=== PATIENT | female | born 1935 | race Caucasian/White ===

== ENCOUNTER 2017-03-09 09:14 | Observation (INO) | payer MEDICARE, OTHER ==
--- NOTE | 2017-03-09 09:23 | EDM.PDOC ---
ED HPI GENERAL MEDICAL PROBLEM - General Chief Complaint: General Stated Complaint: [id number] DIZZY NAUSEA Time Seen by Provider: 03/09/17 09:22 Source of Information: Reports: Patient History Limitations: Reports: No Limitations - History of Present Illness INITIAL COMMENTS - FREE TEXT/NARRATIVE: C/O sudden onset of severe "room spin" dizziness which causes nausea and vomiting. Denies head injury or MANCILLA. Admits to sinus congestion x2 weeks. Rt ear feel plugged or muffled. Has Hx of vertigo with similar Sx's. Onset: sudden Duration: Intermittent Location: Reports: generalized Severity: severe Improves with: Reports: None Worsens with: Reports: Movement Context: Denies: Activity, Exercise, Lifting, Sick contact, Trauma Associated Symptoms: Reports: no other symptoms - Related Data Allergies Allergy/AdvReac Type Severity Reaction Status Date / Time atorvastatin [From Lipitor] Allergy Mild Muscle Verified 08/31/16 14:29 Aches aspirin Allergy tongue Verified 05/26/16 17:09 swelling guaifenesin [From Robitussin] Allergy Cannot Verified 12/25/14 07:32 Remember metronidazole Allergy Cannot Verified 12/25/14 07:32 Remember pravastatin Allergy Muscle Verified 12/26/14 06:13 Aches rosuvastatin Allergy Muscle Verified 12/26/14 06:13 Aches paroxetine HCl [From Paxil] AdvReac Unknown Nausea. Verified 05/26/16 17:09 Jittery. sulfamethoxazole AdvReac Unknown Bone pain Verified 05/26/16 17:09 [From Bactrim] trimethoprim [From Bactrim] AdvReac Unknown Bone pain Verified 05/26/16 17:09 propoxyphene napsylate AdvReac Nausea and Verified 05/26/16 17:09 [From Darvocet-N] Vomiting Home Meds: Home Meds Atenolol [Tenormin] 50 mg PO DAILY 10/04/14 [History] Calcium Carb & Citrate/Vit D3 [Calcium + D3 ER Tablet] 1 tab PO DAILY 10/04/14 [ History] Cranberry 1,000 mg PO DAILY 10/04/14 [History] Fish Oil/[place]-3 Fatty Acids [Fish Oil] 1,000 mg PO BID 10/04/14 [History] Gluc/[place]-Msm#2/C/D3/Ranjan/Born [Pjkczcrjgs-Qmhudcpatwr-GJS] 1,500 mg PO TID 04/12 [History] Pantoprazole Sodium [Protonix] 40 mg PO DAILY 10/04/14 [History] Simvastatin [Zocor] 40 mg PO DAILY 10/04/14 [History] amLODIPine [Norvasc] 5 mg PO DAILY 10/04/14 [History] Cholecalciferol (Vitamin D3) [Vitamin D3] 1,000 unit PO DAILY 12/25/14 [History] Clotrimazole/Betamethasone Dip [Lotrisone Cream] 1 gm TOP BID PRN 12/25/14 [ History] Fluticasone Propionate [Flonase] 2 spray NASBOTH DAILY PRN 12/25/14 [History] Ubidecarenone [Coenzyme Q10] 100 mg PO DAILY 12/25/14 [History] oxyCODONE HCl/Acetaminophen [Endocet 5-325 Tablet] 1 tab PO DAILY PRN 12/25/14 [ History] Acetaminophen [Tylenol Extra Strength] 2 tab PO BID 12/26/14 [History] MV,Ca,Iron,Min/FA/Phytosterol [Centrum Specialist Heart Tab] 1 tab PO BID [History] Sucralfate 1 gm PO QID 09/20/16 [History] Past Medical History HEENT History: Reports: Macular degeneration Cardiovascular History: Reports: High cholesterol, Hypertension, SOB on exertion , Stents Respiratory History: Reports: SOB Other Gastrointestinal History: HX ulcer Genitourinary History: Reports: None, Other (see below) Other Genitourinary History: freguent UTI GARMENT FITTER History: Reports: Other OB/BYN History: one miscarriage Musculoskeletal History: Reports: Arthritis, Osteoarthritis, Osteoporosis, Other (see below) Other Musculoskeletal History: spinal stenosis Neurological History: Reports: Vertigo Psychiatric History: Reports: None Endocrine/Metabolic History: Reports: Osteoporosis Hematologic History: Reports: Anemia Immunologic History: Reports: None Oncologic (Cancer) History: Reports: None Dermatologic History: Reports: Benign melanoma, Cellulitis - Infectious Disease History Infectious Disease History: Reports: Chicken pox, Influenza, Measles, Mumps, Pertussis (whooping cough) - Past Surgical History Head Surgeries/Procedures: Reports: None HEENT Surgical History: Reports: Naso-sinus surgery Cardiovascular Surgical History: Reports: Coronary artery stent Other Cardiovascular Surgeries/Procedures: 2 stents vein ligation Respiratory Surgical History: Reports: None GI Surgical History: Reports: Cholecystectomy, Colonoscopy, EGD Female Surgical History: Reports: Breast biopsy, Hysterectomy Endocrine Surgical History: Reports: None Neurological Surgical History: Reports: None Musculoskeletal Surgical History: Reports: None Oncologic Surgical History: Reports: None Dermatological Surgical History: Reports: Other (see below) Social & Family History - Family History HEENT: Reports: Cataract, Macular degeneration Cardiac: Reports: Other (see below) Other Cardiac Family History: leaky valve Respiratory: Reports: None GI: Reports: None : Reports: Other (see below) Other Family History: mother had bladder infection OBGYN: Reports: Musculoskeletal: Reports: Arthritis, Osteoarthritis Neurological: Reports: Other (see below) Other Neurological Family History: mother was anxious Psychiatric: Reports: None Endocrine/Metabolic: Reports: Osteoporosis Hematologic: Reports: Anemia Immunologic: Reports: None Dermatologic: Reports: None Oncologic: Reports: Colon, Prostate - Tobacco Use Smoking Status *Q: Never Smoker Used Tobacco, but Quit: No Second Hand Smoke Exposure: No - Alcohol Use Days Per Week of Alcohol Use: 0 - Recreational Drug Use Recreational Drug Use: No Drug Use in Last 12 Months: No - Living Situation & Occupation Living situation: Reports: , alone Occupation: retired ED ROS GENERAL - Review of Systems Review Of Systems: ROS reveals no pertinent complaints other than HPI. ED EXAM, DIZZINESS - Physical Exam Exam: See Below Exam Limited By: No Limitations General Appearance: Alert, WD/WN, No Apparent Distress Eye Exam: bilateral eye: EOMI, nystagmus (lateral gaze), PERRL Nystagmus: reproducible, short duration Ears: normal external exam, normal canal Nose: Normal Inspection, Normal Mucosa, No Blood Throat/Mouth: Normal Inspection, Normal Lips, Normal Teeth, Normal Gums, Normal Oropharynx, Normal Voice, No Airway Compromise Head Exam: Atraumatic, Normocephalic Vertigo: worsens with head to L (and with head movement) Neck: Normal Inspection, Supple, Non-Tender, Full Range of Motion. No: Carotid Bruit, Lymphadenopathy (L), Lymphadenopathy (R) Respiratory/Chest: No Respiratory Distress, Lungs Clear, Normal Breath Sounds, No Accessory Muscle Use, Chest Non-Tender Cardiovascular: Regular Rate, Rhythm GI/Abdominal: Normal Bowel Sounds, Soft, Non-Tender, No Distention, No Mass Rectal (Female) Exam: Deferred Neurological: alert, normal mood/affect, normal dorsiflexion, CN II-XII intact, normal plantar flexion, no motor/sensory deficits, oriented x 3 Back Exam: Normal Inspection Extremities: Normal Range of Motion, Non-Tender, Normal Capillary Refill, Other (chronic/stable pedal edema) Psychiatric: Normal Affect, Normal Mood Skin Exam: Warm, Dry, Intact, Normal Color, No Rash EKG INTERPRETATION EKG Date: 03/09/17 Time: 10:33 Rhythm: other (SR) Rate (beats/min): 60 [place]: normal P-wave: present QRS: normal (LVH) ST-T: normal QT: normal CT/PQ Interval: prolonged CT interval Comparison: NA - no prior EKG Course - Vital Signs Last Recorded V/S: Last Vital Signs Temp 35.5 C 03/09/17 09:25 Pulse 61 03/09/17 09:25 Resp 16 03/09/17 09:25 BP 113/55 L 03/09/17 09:25 Pulse Ox 97 03/09/17 09:25 - Orders/Labs/Meds Orders: Active Orders 24 hr Category Date Time Status EKG 12 Lead [EKG Documentation Completion] [] STAT Care 03/09/17 09:41 Active Peripheral IV Care [RC] . DIRECTED Care 03/09/17 09:43 Active Sodium Chloride 0.9% [Saline Flush] Med 03/09/17 09:41 Active 10 ml FLUSH ASDIRECTED PRN Peripheral IV Insertion Adult [OM.PC] Stat Oth 03/09/17 09:41 Ordered Medication Orders Sodium Chloride (Saline Flush) 10 ml FLUSH ASDIRECTED PRN PRN Reason: Keep Vein Open Labs: Laboratory Tests 03/09/17 03/09/17 03/09/17 Range/Units 09:55 09:55 11:10 WBC 4.6 L (5.0-10.0) 10^3/uL RBC 4.15 L (4.2-5.4) 10^6/uL Hgb 12.1 (12.0-16.0) g/dL Hct 37.6 (37.0-47.0) % MCV 90.6 (80-100) fL MCH 29.2 (27.0-34.0) pg MCHC 32.2 L (33.0-35.0) g/dL Plt Count 218 (150-450) 10^3/uL Neut % (Auto) 32.8 L (42.2-75.2) % Lymph % (Auto) 55.3 H (20.5-50.1) % [place] % (Auto) 9.0 H (2-8) % Eos % (Auto) 2.2 (1.0-3.0) % Baso % (Auto) 0.7 (0.0-1.0) % Add Manual Diff Yes Neutrophils % (Manual) 36 % Band Neutrophils % 1 % Lymphocytes % (Manual) 52 % Monocytes % (Manual) 8 % Eosinophils % (Manual) 3 % Sodium 139 (135-145) mmol/L Potassium 3.6 (3.6-5.0) mmol/L Chloride 102 (101-111) mmol/L Carbon Dioxide 29.0 (21.0-31.0) mmol/L Anion Gap 11.6 BUN 17 (7-18) mg/dL Creatinine 0.6 (0.6-1.3) mg/dL Est Cr Clr Drug Dosing 67.67 mL/min Estimated GFR (MDRD) > 60 BUN/Creatinine Ratio 28.33 Glucose 122 H (74-105) mg/dL Calcium 9.5 (8.4-10.2) mg/dl Total Bilirubin 0.7 (0.2-1.0) mg/dL AST 30 (10-42) IU/L ALT 29 (10-60) IU/L Alkaline Phosphatase 61 (42-121) IU/L Troponin I < 0.02 (0.00-0.02) ng/ml Total Protein 7.4 (6.7-8.2) g/dl Albumin 4.4 (3.2-5.5) g/dl Globulin 3.0 Albumin/Globulin Ratio 1.47 Urine Color Yellow (YELLOW) Urine Appearance Slightly cloudy (CLEAR) Urine pH 7.5 (5.0-9.0) Ur Specific [place] 1.015 (1.005-1.030) Urine Protein Negative (NEGATIVE) Urine Glucose (UA) Negative (NEGATIVE) Urine Ketones Negative (NEGATIVE) Urine Occult Blood Negative (NEGATIVE) Urine Nitrite Negative (NEGATIVE) Urine Bilirubin Negative (NEGATIVE) Urine Urobilinogen 0.2 (0.2-1.0) mg/dL Ur Leukocyte Esterase Negative (NEGATIVE) Urine RBC Not seen /HPF Urine WBC 0-5 (0-5/HPF) /HPF Ur Epithelial Cells Rare /HPF Amorphous Sediment Few (0/HPF) /HPF Meds: Medications Generic Name Dose Route Start Last Admin Trade Name Freq PRN Reason Stop Dose Admin Sodium Chloride 10 ml 03/09/17 09:41 Saline Flush FLUSH ASDIRECTED PRN Keep Vein Open Discontinued Medications Generic Name Dose Route Start Last Admin Trade Name Freq PRN Reason Stop Dose Admin Dexamethasone 20 mg 03/09/17 09:44 03/09/17 10:11 Dexamethasone IVPUSH 03/09/17 09:45 20 mg ONETIME ONE Administration Diazepam 5 mg 03/09/17 09:44 03/09/17 10:13 Valium IVPUSH 03/09/17 09:45 5 mg ONETIME ONE Administration Sodium Chloride 1,000 mls @ 999 mls/hr 03/09/17 09:43 03/09/17 10:07 Normal Saline IV 03/09/17 10:43 999 mls/hr .BOLUS ONE Administration Meclizine HCl 25 mg 03/09/17 09:44 03/09/17 10:17 Antivert PO 03/09/17 09:45 25 mg ONETIME ONE Administration - Re-Assessments/Exams Free Text/Narrative Re-Assessment/Exam: 03/09/17 12:15 I explained the exam findings, results of all diagnostic tests, working diagnosis, and any potential or additionally considered diagnoses, treatment/ disposition plan, self/home care instructions, rational for the diagnosis/ treatment plan/disposition plan, anticipated course of illness, and follow up instructions to the pt and/or pts family or guardian. The pt and/or pts family or guardian acknowledges understanding of the above explanation(s), and of the signs and symptoms which should prompt the return of the pt to the ER should those or any other concerning symptoms develop. Departure - Departure Time of Disposition: 12:13 (admit to Dr. Askew) Disposition: Refer to Observation Condition: fair Clinical Impression: Vertigo - Discharge Information Forms: ED Department Discharge - My Orders Last 24 Hours: My Active Orders 03/09/17 09:41 EKG 12 Lead [EKG Documentation Completion] [RC] STAT Sodium Chloride 0.9% [Saline Flush] 10 ml FLUSH ASDIRECTED PRN Peripheral IV Insertion Adult [OM.PC] Stat 03/09/17 09:43 Peripheral IV Care [RC] . DIRECTED - Assessment/Plan Last 24 Hours: My Active Orders 03/09/17 09:41 EKG 12 Lead [EKG Documentation Completion] [RC] STAT Sodium Chloride 0.9% [Saline Flush] 10 ml FLUSH ASDIRECTED PRN Peripheral IV Insertion Adult [OM.PC] Stat 03/09/17 09:43 Peripheral IV Care [RC] . DIRECTED
[2017-03-09] MEDS ORDERED: Sodium Chloride 0.9% 10 ML Syringe FLUSH PRN (09:41)
[2017-03-09] MEDS ORDERED: Sodium Chloride 0.9% 1,000 ML IV ONE (09:43)
[2017-03-09] MEDS ORDERED: Dexamethasone 4 MG/ML SDV IVPUSH ONE (09:44)
[2017-03-09] MEDS ORDERED: Meclizine 12.5 MG Tab PO ONE (09:44)
[2017-03-09 10:28] LABS: CHLORIDE,CL 102 mmol/L (101-111); SODIUM,NA 139 mmol/L (135-145)
[2017-03-09] MEDS ORDERED: Ondansetron 4 MG/2 ML SDV IVPUSH PRN (13:17)
[2017-03-09] MEDS ORDERED: Promethazine 25 MG/ML SDV IM PRN (13:17)
[2017-03-09] MEDS ORDERED: Acetaminophen 325 MG Tab PO PRN (13:17)
[2017-03-09] MEDS ORDERED: Morphine 2 MG/ML Syringe IVPUSH PRN (13:17)
[2017-03-09] MEDS ORDERED: Polyethylene Glycol 3350 Powder 17 GM Packet PO PRN (13:17)
--- NOTE | 2017-03-09 13:44 | PCM.HP ---
H&P History of Present Illness - General Date of Service: 03/09/17 Admit Problem/Dx: Admission Diagnosis/Problem Admission Diagnosis/Problem Dizziness Source of Information: Patient History Limitations: Reports: No Limitations - History of Present Illness Initial Comments - Free Text/Narative: 82-year-old female with past medical history of coronary artery disease, chronic kidney disease stage III, diverticulosis, degenerative joint disease, hypertension, iron injections anemia, spinal stenosis of lumbar region presented to emergency room for having dizziness this morning. Patient stated that about 6 clock she woke up and while in bed she is started feeling spinning dizziness which got worse with head and body movements. She was in unbalanced when tried to walk. She feels better when she holds still. She has no other complaints other than fullness in her left ear started yesterday and warmth in her left leg for the last several weeks. symptoms that are as she did with the dizziness are nausea and one episode of vomiting while in ER. she denies fever, chills, sinus congestion, sore throat, chest pain, shortness breath, cough, abdomen pain, urinary symptoms, unilateral weakness/numbness/tingling. or any other symptoms. She admits having sinus infection lost it for 6 weeks in November also at the same time she was treated for left leg cellulitis. She denies history of congestive heart failure. In the emergency room her EKG was unremarkable for ST changes. #2 work up revealed WBC 4.6. Hemoglobin 12.1. Sodium 139. Potassium 3.6. Creatinine 0.6. GFR more than 60. Random blood glucose 122. troponin less than 0.02. UA is unremarkable. she received diazepam 5 mg IV once, dexamethasone 20 mg IV once, meclizine 25 mg p.o. one, and 1 L of normal saline as a bolus. she was admitted for observation for further workup and management. - Related Data Allergies/Adverse Reactions: Allergies Allergy/AdvReac Type Severity Reaction Status Date / Time atorvastatin [From Lipitor] Allergy Mild Muscle Verified 03/09/17 13:11 Aches aspirin Allergy tongue Verified 03/09/17 13:11 swelling guaifenesin [From Robitussin] Allergy Cannot Verified 03/09/17 13:11 Remember metronidazole Allergy Cannot Verified 03/09/17 13:11 Remember pravastatin Allergy Muscle Verified 03/09/17 13:11 Aches rosuvastatin Allergy Muscle Verified 03/09/17 13:11 Aches paroxetine HCl [From Paxil] AdvReac Unknown Nausea. Verified 03/09/17 13:11 Jittery. sulfamethoxazole AdvReac Unknown Bone pain Verified 03/09/17 13:11 [From Bactrim] trimethoprim [From Bactrim] AdvReac Unknown Bone pain Verified 03/09/17 13:11 propoxyphene napsylate AdvReac Nausea and Verified 03/09/17 13:11 [From Darvocet-N] Vomiting Home Medications: Home Meds Atenolol [Tenormin] 50 mg PO DAILY 10/04/14 [History] Calcium Carb & Citrate/Vit D3 [Calcium + D3 ER Tablet] 1 tab PO DAILY 10/04/14 [ History] Cranberry 1,000 mg PO DAILY 10/04/14 [History] Fish Oil/[place]-3 Fatty Acids [Fish Oil] 1,000 mg PO BID 10/04/14 [History] Gluc/Stefano-Msm#2/C/D3/Ranjan/Born [Ztffdvydek-Kyyprlwighb-EEI] 1,500 mg PO TID 04/12 [History] Pantoprazole Sodium [Protonix] 40 mg PO DAILY 10/04/14 [History] Simvastatin [Zocor] 40 mg PO DAILY 10/04/14 [History] amLODIPine [Norvasc] 5 mg PO DAILY 10/04/14 [History] Cholecalciferol (Vitamin D3) [Vitamin D3] 1,000 unit PO DAILY 12/25/14 [History] Clotrimazole/Betamethasone Dip [Lotrisone Cream] 1 gm TOP BID PRN 12/25/14 [ History] Fluticasone Propionate [Flonase] 2 spray NASBOTH DAILY PRN 12/25/14 [History] Ubidecarenone [Coenzyme Q10] 100 mg PO DAILY 12/25/14 [History] oxyCODONE HCl/Acetaminophen [Endocet 5-325 Tablet] 1 tab PO DAILY PRN 12/25/14 [ History] Acetaminophen [Tylenol Extra Strength] 2 tab PO BID 12/26/14 [History] Sucralfate 1 gm PO QID 09/20/16 [History] Codeine/Promethazine [Phenergan with Codeine] 5 ml PO DAILY PRN 03/09/17 [ History] Furosemide 20 mg PO DAILY PRN 03/09/17 [History] Lisinopril 2.5 mg PO DAILY 03/09/17 [History] Multivitamin [Multiple Vitamins] 1 each PO DAILY 03/09/17 [History] Nitroglycerin [Nitrostat] 0.4 mg SL Q5M PRN 03/09/17 [History] Ondansetron HCl [Zofran] 4 mg PO Q6HR PRN 03/09/17 [History] Patient's Own Medication [Ptom] 26 mcg VAG .TWICE A WEEK 03/09/17 [History] Past Medical History HEENT History: Reports: Macular degeneration Cardiovascular History: Reports: High cholesterol, Hypertension, SOB on exertion , Stents Respiratory History: Reports: SOB Other Gastrointestinal History: HX ulcer Genitourinary History: Reports: None, Other (see below) Other Genitourinary History: freguent UTI [employer] History: Reports: Other OB/BYN History: one miscarriage Musculoskeletal History: Reports: Arthritis, Osteoarthritis, Osteoporosis, Other (see below) Other Musculoskeletal History: spinal stenosis Neurological History: Reports: Vertigo Psychiatric History: Reports: None Endocrine/Metabolic History: Reports: Osteoporosis Hematologic History: Reports: Anemia Immunologic History: Reports: None Oncologic (Cancer) History: Reports: None Dermatologic History: Reports: Benign melanoma, Cellulitis - Infectious Disease History Infectious Disease History: Reports: Chicken pox, Influenza, Measles, Mumps, Pertussis (whooping cough) - Past Surgical History Head Surgeries/Procedures: Reports: None HEENT Surgical History: Reports: Naso-sinus surgery Cardiovascular Surgical History: Reports: Coronary artery stent Other Cardiovascular Surgeries/Procedures: 2 stents vein ligation Respiratory Surgical History: Reports: None GI Surgical History: Reports: Cholecystectomy, Colonoscopy, EGD Female Surgical History: Reports: Breast biopsy, Hysterectomy Endocrine Surgical History: Reports: None Neurological Surgical History: Reports: None Musculoskeletal Surgical History: Reports: None Oncologic Surgical History: Reports: None Dermatological Surgical History: Reports: Other (see below) Social & Family History - Family History HEENT: Reports: Cataract, Macular degeneration Cardiac: Reports: Other (see below) Other Cardiac Family History: leaky valve Respiratory: Reports: None GI: Reports: None : Reports: Other (see below) Other Family History: mother had bladder infection OBGYN: Reports: Musculoskeletal: Reports: Arthritis, Osteoarthritis Neurological: Reports: Other (see below) Other Neurological Family History: mother was anxious Psychiatric: Reports: None Endocrine/Metabolic: Reports: Osteoporosis Hematologic: Reports: Anemia Immunologic: Reports: None Dermatologic: Reports: None Oncologic: Reports: Colon, Prostate - Tobacco Use Smoking Status *Q: Never Smoker Used Tobacco, but Quit: No Second Hand Smoke Exposure: No - Caffeine Use Caffeine Use: Reports: None - Alcohol Use Days Per Week of Alcohol Use: 0 - Recreational Drug Use Recreational Drug Use: No Drug Use in Last 12 Months: No - Living Situation & Occupation Living situation: Reports: , alone Occupation: retired H&P Review of Systems - Review of Systems: Review Of Systems: See Below General: Reports: No Symptoms HEENT: Denies: Dysphasia, Ear Pain, Headaches, Hearing Changes, Rhinitis, Post Nasal Drip, Sinus Congestion, Sore Throat, Visual Changes Pulmonary: Reports: No Symptoms Cardiovascular: Reports: No Symptoms Gastrointestinal: Reports: No Symptoms Genitourinary: Reports: No Symptoms Musculoskeletal: Reports: No Symptoms Skin: Reports: No Symptoms Psychiatric: Reports: No Symptoms Neurological: Denies: Confusion, Headache, Numbness, Paresthesia, Seizure, Syncope, Tingling, Tremors, Trouble Speaking, Change in Speech Hematologic/Lymphatic: Reports: No Symptoms Immunologic: Reports: No Symptoms Exam - Exam Exam: See Below - Vital Signs Vital Signs: Last Vital Signs Temp 36.4 C 03/09/17 12:49 Pulse 65 03/09/17 12:49 Resp 18 03/09/17 12:49 BP 168/63 H 03/09/17 12:49 Pulse Ox 100 03/09/17 12:49 Weight: 95.708 kg - Exam General: alert, oriented, cooperative, other (patient is trying to hold her head still while talking and avoiding moving her head toward me). No: moderate distress, severe distress, sedated, lethargic, obtunded HEENT: Conjunctiva clear, EACs clear, EOMI, Hearing intact, Mucosa moist & pink , Nares patent, Normal nasal septum, Posterior pharynx clear, Pupils equal, Pupils reactive, TMs clear. No: Abnormal pupils, Rhinitis, Scleral icterus Neck: supple, trachea midline Lungs: Clear to auscultation, Normal respiratory effort Cardiovascular: regular rate, regular rhythm Abdomen: Normal Bowel Sounds, Soft, Pelvis Stable (Female) Exam: Deferred Rectal (Female) Exam: Deferred Back Exam: Normal Inspection, Full Range of Motion Extremities: normal pulses, clubbing, cyanosis, calf tenderness, edema (+2 vitals her lower extremities edema. both legs feel warm. I did not appreciate signs of cellulitis, redness, or tenderness), other Neuro Extensive - Mental Status: alert, oriented x3, normal mood/affect, normal cognition, memory intact Neuro Extensive - Motor, Sensory, Reflexes: CN II-XII intact, normal reflexes. No: expressive aphasia, facial palsy (L), hemiplagia (L) Psychiatric: alert, normal affect, normal mood - Patient Data Result Diagrams: 03/09/17 09:55 03/09/17 09:55 *Q Meaningful Use (ADM) - VTE *Q VTE Criteria *Q: - Stroke *Q Stroke Criteria *Q: - AMI *Q AMI Criteria *Q: - Problem List (1) History of coronary artery disease SNOMED Code(s): 334943224 ICD Code: Z86.79 - PERSONAL HISTORY OF OTHER DISEASES OF THE CIRCULATORY SYSTEM Status: Chronic Current Visit: Yes (2) Degenerative joint disease SNOMED Code(s): 672779449 ICD Code: M19.90 - UNSPECIFIED OSTEOARTHRITIS, UNSPECIFIED SITE Status: Chronic Current Visit: Yes (3) History of iron deficiency SNOMED Code(s): 072850277 ICD Code: Z86.39 - PERSONAL HISTORY OF ENDO, NUTRITIONAL AND METABOLIC DISEASE Status: Chronic Current Visit: Yes (4) Chronic kidney disease, stage III (moderate) SNOMED Code(s): 681245525 ICD Code: N18.3 - CHRONIC KIDNEY DISEASE, STAGE 3 (MODERATE) Status: Chronic Current Visit: Yes (5) Bilateral lower extremity edema SNOMED Code(s): 819777244 ICD Code: R60.0 - LOCALIZED EDEMA Status: Chronic Current Visit: Yes (6) Vertigo SNOMED Code(s): 718819834 ICD Code: R42 - DIZZINESS AND GIDDINESS Status: Acute Priority: High Current Visit: Yes Problem List Initiated/Reviewed/Updated: Yes Orders Last 24hrs: Active Orders 24 hr Category Date Time Status Patient Status [ADT] Routine ADT 03/09/17 13:17 Active Antiembolic Devices [RC] PER UNIT ROUTINE Care 03/09/17 13:24 Active Height and Weight [RC] DAILY Care 03/09/17 13:17 Active Intake and Output [RC] Q6H Care 03/09/17 13:22 Active Oxygen Therapy [RC] PRN Care 03/09/17 13:17 Active Up With Assistance [RC] ASDIRECTED Care 03/09/17 13:17 Active VTE/DVT Education [RC] PER UNIT ROUTINE Care 03/09/17 13:17 Active Vital Signs [RC] Q4H Care 03/09/17 13:17 Active PT Evaluation and Treatment [CONS] Routine Cons 03/09/17 13:17 Active Regular Diet [DIET] Diet 03/09/17 Breakfast Active Venous Doppler Lwr Ext Bi [US] Routine Exams 03/09/17 13:26 Ordered BASIC METABOLIC PANEL,BMP [CHEM] AM Lab 03/10/17 05:11 Ordered CBC WITH AUTO DIFF [HEME] AM Lab 03/10/17 05:11 Ordered MAGNESIUM [CHEM] AM Lab 03/10/17 05:11 Ordered PHOSPHORUS [CHEM] AM Lab 03/10/17 05:11 Ordered TSH ULTRASENSITIVE [CHEM] AM Lab 03/10/17 05:11 Ordered Acetaminophen [Tylenol] Med 03/09/17 13:17 Active 650 mg PO Q4H PRN Heparin Sodium Med 03/09/17 14:00 Active 5,000 units SUBCUT Q8HR Meclizine [Antivert] Med 03/09/17 13:35 Ordered 25 mg PO Q8H PRN Morphine Med 03/09/17 13:17 Active 2 mg IVPUSH Q2H PRN Ondansetron [Zofran] Med 03/09/17 13:17 Active 4 mg IVPUSH Q6H PRN Polyethylene Glycol 3350 [MiraLAX] Med 03/09/17 13:17 Active 17 gm PO DAILY PRN Promethazine [Phenergan] Med 03/09/17 13:17 Active 6.25 mg IM Q6H PRN Sequential Compression Device [OM.PC] Per Unit Routine Oth 03/09/17 13:22 Ordered Resuscitation Status Routine Resus Stat 03/09/17 13:17 Ordered Medication Orders Acetaminophen (Tylenol) 650 mg PO Q4H PRN PRN Reason: Pain (Mild 1-3)/fever Heparin Sodium (Porcine) (Heparin Sodium) 5,000 units SUBCUT Q8HR JORDY Meclizine HCl (Antivert) 25 mg PO Q8H PRN PRN Reason: Dizziness Morphine Sulfate (Morphine) 2 mg IVPUSH Q2H PRN PRN Reason: Pain (severe 7-10) Ondansetron HCl (Zofran) 4 mg IVPUSH Q6H PRN PRN Reason: Nausea/Vomiting Polyethylene Glycol (Miralax) 17 gm PO DAILY PRN PRN Reason: Constipation Promethazine HCl (Phenergan) 6.25 mg IM Q6H PRN PRN Reason: Nausea/Vomiting Sodium Chloride (Saline Flush) 10 ml FLUSH ASDIRECTED PRN PRN Reason: Keep Vein Open Assessment/Plan Comment:: Dizziness most likely from vertigo continue with meclizine orally Physical therapy -check TSH -Check magnesium and phosphorus Lower extremities edema, bilaterally -We'll do bilateral ultrasound was venous Doppler to rule out DVT -check BNP Degenerative joint disease, chronic resume her oxycodone/acetaminophen Physical therapy Essential hypertension Continue with amlodipine and lisinopril History of coronary artery disease, stable No signs or symptoms of acute coronary syndrome Resume home medications History of iron deficiency anemia Hemoglobin is normal heparin for DVT prophylaxis Patient wants to be full code
[2017-03-09] MEDS ORDERED: Nitroglycerin 0.4 MG Tab.SL SL PRN (13:48)
[2017-03-09] MEDS ORDERED: Furosemide 20 MG Tab PO PRN (13:48)
[2017-03-09] MEDS ORDERED: Fluticasone Propionate Nasal Spray 16 GM Bottle NASBOTH PRN (13:48)
[2017-03-09] MEDS ORDERED: Codeine/Promethazine 10-6.25 MG/5 ML Syrup 5 ML UD Cup PO PRN (13:48)
[2017-03-09] MEDS ORDERED: Acetaminophen/oxyCODONE 325-5 MG Tab PO PRN (13:48)
[2017-03-09] MEDS ORDERED: Betamethasone Dipropionate/Clotrimazole 0.05-1% Crm 15 GM Tube TOP PRN (13:48)
[2017-03-09] MEDS: Acetaminophen 500 MG Tab PO SCH ×2 (15:05→20:55)
[2017-03-09] MEDS: Pantoprazole 40 MG Tab.CR PO SCH (15:05)
[2017-03-09] MEDS: Cholecalciferol (Vitamin D3) 400 Unit Tab PO SCH (15:05)
[2017-03-09] MEDS: Calcium Carbonate/Vitamin D3 1250 MG-200 Unit Tab PO SCH (15:05)
[2017-03-09] MEDS: Multivitamins,Therapeutic Tab PO SCH (15:05)
[2017-03-09] MEDS: amLODIPine 5 MG Tab PO SCH (15:06)
[2017-03-09] MEDS: Heparin Sodium 5,000 Units/ML Vial SUBCUT SCH ×2 (15:06→22:09)
[2017-03-09] MEDS: Lisinopril 5 MG Tab PO SCH (15:06)
[2017-03-09] MEDS: Atenolol 50 MG Tab PO SCH (15:06)
--- NOTE | 2017-03-09 15:18 | US ---
Clinical history: 82-year-old female with history of "stripping" varicose veins presents now with bi lateral lower extremity edema. Rule out deep venous thrombosis. Interpretation: Negative exam. No sign of intraluminal echogenic thrombus and normal compressibility deep veins of both groins, thi gh and knee with satisfactory augmentation venous waveforms demonstrated respectively in the poplite al, superficial and common femoral veins both lower extremities. No Alfaro's cyst. CONCLUSION: Negative exam.
[2017-03-09] MEDS: Sucralfate 1 GM Tab PO SCH ×2 (17:14→20:55)
[2017-03-09] MEDS: Simvastatin 40 MG Tab PO SCH (20:55)
[2017-03-10] MEDS: Heparin Sodium 5,000 Units/ML Vial SUBCUT SCH ×3 (05:55→21:28)
[2017-03-10] MEDS: Pantoprazole 40 MG Tab.CR PO SCH (05:55)
[2017-03-10 06:55] LABS: CHLORIDE,CL 105 mmol/L (101-111); SODIUM,NA 138 mmol/L (135-145)
[2017-03-10] MEDS ORDERED: Sodium Chloride 0.65% Nasal Spray 45 ML Bottle NAS PRN (09:19)
[2017-03-10] MEDS: Cholecalciferol (Vitamin D3) 400 Unit Tab PO SCH (09:20)
--- NOTE | 2017-03-10 09:20 | PCM.PN ---
- General Info Date of Service: 03/10/17 Admission Dx/Problem (Free Text): Admission Diagnosis/Problem Admission Diagnosis/Problem Dizziness Subjective Update: patient is feeling better for her dizziness. Physical therapy with Demian maneuver and meclizine helped. today she is complaining of sinus congestion. She still complaining of left leg warmth and discomfort. He thinks cellulitis has not completely recovered. she denies fever, chills, nausea, vomiting, chest pain, shortness of breath, abdomen pain, change in vision, unilateral weakness/ numbness/tingling, or any other symptoms. - Patient Data Vitals - most recent: Last Vital Signs Temp 37.5 C 03/10/17 07:49 Pulse 89 03/10/17 07:49 Resp 20 03/10/17 07:49 BP 123/52 L 03/10/17 07:49 Pulse Ox 100 03/10/17 07:49 Weight - most recent: 95.821 kg I&O - last 24 hours: Intake & Output 03/09/17 03/10/17 03/10/17 22:59 06:59 14:59 Intake Total 1155 Balance 1155 Lab Results last 24 hrs: Laboratory Results - last 24 hr 03/10/17 03/10/17 03/10/17 Range/Units 06:23 06:23 06:23 WBC 9.5 (5.0-10.0) 10^3/uL RBC 4.07 L (4.2-5.4) 10^6/uL Hgb 11.9 L (12.0-16.0) g/dL Hct 36.3 L (37.0-47.0) % MCV 89.2 (80-100) fL MCH 29.2 (27.0-34.0) pg MCHC 32.8 L (33.0-35.0) g/dL Plt Count 242 (150-450) 10^3/uL Neut % (Auto) 71.6 (42.2-75.2) % Lymph % (Auto) 23.9 (20.5-50.1) % [place] % (Auto) 4.4 (2-8) % Eos % (Auto) 0.1 L (1.0-3.0) % Baso % (Auto) 0.0 (0.0-1.0) % Sodium 138 (135-145) mmol/L Potassium 3.8 (3.6-5.0) mmol/L Chloride 105 (101-111) mmol/L Carbon Dioxide 24.0 (21.0-31.0) mmol/L Anion Gap 12.8 BUN 19 H (7-18) mg/dL Creatinine 0.8 (0.6-1.3) mg/dL Est Cr Clr Drug Dosing 51.03 mL/min Estimated GFR (MDRD) > 60 Glucose 163 H (74-105) mg/dL Calcium 9.8 (8.4-10.2) mg/dl Phosphorus 2.9 (2.5-4.6) mg/dL Magnesium 2.0 (1.8-2.5) mg/dL B-Natriuretic Peptide 89 (0-100) pg/ml TSH, Ultra Sensitive 1.08 (0.35-7.0) uIu/mL Med Orders - Current: Current Medications Acetaminophen (Tylenol) 650 mg PO Q4H PRN PRN Reason: Pain (Mild 1-3)/fever Acetaminophen (Tylenol Extra Strength) 1,000 mg PO BID [facility] Last Admin: 03/09/17 20:55 Dose: 1,000 mg Amlodipine Besylate (Norvasc) 5 mg PO DAILY [facility] Last Admin: 03/09/17 15:06 Dose: 5 mg Atenolol (Tenormin) 50 mg PO DAILY [facility] Last Admin: 03/09/17 15:06 Dose: 50 mg Betamethasone/Clotrimazole (Lotrisone) 0 gm TOP BID PRN PRN Reason: Rash Calcium Carbonate (Calcium Carbonate/Vitamin D 1250 Mg-200 Unit) 1 tab PO DAILY [facility] Last Admin: 03/09/17 15:05 Dose: 1 tab Cholecalciferol (Vitamin D3) 1,000 units PO DAILY [facility] Last Admin: 03/09/17 15:05 Dose: 1,000 units Fluticasone Propionate (Flonase) 0 gm NASBOTH DAILY PRN PRN Reason: Allergies Furosemide (Lasix) 20 mg PO DAILY PRN PRN Reason: Other Heparin Sodium (Porcine) (Heparin Sodium) 5,000 units SUBCUT Q8HR [facility] Last Admin: 03/10/17 05:55 Dose: 5,000 units Lisinopril (Prinivil) 2.5 mg PO DAILY [facility] Last Admin: 03/09/17 15:06 Dose: 2.5 mg Meclizine HCl (Antivert) 25 mg PO Q8H PRN PRN Reason: Dizziness Morphine Sulfate (Morphine) 2 mg IVPUSH Q2H PRN PRN Reason: Pain (severe 7-10) Multivitamins (Thera) 1 each PO DAILY [facility] Last Admin: 03/09/17 15:05 Dose: 1 each Nitroglycerin (Nitrostat) 0.4 mg SL Q5M PRN PRN Reason: Chest Pain Non-Formulary Medication (Fish Oil/[place]-3 Fatty Acids [Fish Oil]) 1,000 mg PO BID [facility] Non-Formulary Medication (Gluc/[place]-Msm#2/C/D3/Ranjan/Born [Glucosamin-Chondroitin -Msm]) 1,500 mg PO TID [facility] Non-Formulary Medication (Ubidecarenone [Coenzyme Q10]) 100 mg PO DAILY [facility] Ondansetron HCl (Zofran) 4 mg IVPUSH Q6H PRN PRN Reason: Nausea/Vomiting Oxycodone/Acetaminophen (Percocet 325-5 Mg) 1 tab PO DAILY PRN PRN Reason: Pain Pantoprazole Sodium (Protonix) 40 mg PO ACBREAKFAST [facility] Last Admin: 03/10/17 05:55 Dose: 40 mg Polyethylene Glycol (Miralax) 17 gm PO DAILY PRN PRN Reason: Constipation Promethazine HCl (Phenergan) 6.25 mg IM Q6H PRN PRN Reason: Nausea/Vomiting Promethazine HCl/Codeine (Phenergan With Codeine) 5 ml PO DAILY PRN PRN Reason: Cough Simvastatin (Zocor) 40 mg PO BEDTIME [facility] Last Admin: 03/09/17 20:55 Dose: 40 mg Sodium Chloride (Saline Flush) 10 ml FLUSH ASDIRECTED PRN PRN Reason: Keep Vein Open Last Admin: 03/09/17 21:09 Dose: 10 ml Sucralfate (Carafate) 1 gm PO QIDACANDBED [facility] Last Admin: 03/09/17 20:55 Dose: 1 gm Discontinued Medications Dexamethasone (Dexamethasone) 20 mg IVPUSH ONETIME ONE Stop: 03/09/17 09:45 Last Admin: 03/09/17 10:11 Dose: 20 mg Diazepam (Valium) 5 mg IVPUSH ONETIME ONE Stop: 03/09/17 09:45 Last Admin: 03/09/17 10:13 Dose: 5 mg Sodium Chloride (Normal Saline) 1,000 mls @ 999 mls/hr IV .BOLUS ONE Stop: 03/09/17 10:43 Last Admin: 03/09/17 10:07 Dose: 999 mls/hr Meclizine HCl (Antivert) 25 mg PO ONETIME ONE Stop: 03/09/17 09:45 Last Admin: 03/09/17 10:17 Dose: 25 mg - Exam General: alert, oriented, cooperative, no acute distress, other (she looks better today. She sounds congested) HEENT: Pupils equal, Pupils reactive, EOMI, Mucous membr. moist/pink Neck: supple, trachea midline, no JVD Lungs: Clear to auscultation, Normal respiratory effort Cardiovascular: Regular Rate, Regular Rhythm Abdomen: bowel sounds present, soft, no tenderness, no distension Extremities: no clubbing, no cyanosis, edema (bilateral lower extremities, no change from yesterday. She has mild erythema and warmth on the mid medial area off the left leg where patient had cellulitis and complains about discomfort) Neurological: no new focal deficit Psy/Mental Status: alert, normal affect, normal mood - Problem List & Annotations (1) History of coronary artery disease SNOMED Code(s): 842184552 Code(s): Z86.79 - PERSONAL HISTORY OF OTHER DISEASES OF THE CIRCULATORY SYSTEM Status: Chronic Current Visit: Yes (2) Degenerative joint disease SNOMED Code(s): 267441976 Code(s): M19.90 - UNSPECIFIED OSTEOARTHRITIS, UNSPECIFIED SITE Status: Chronic Current Visit: Yes (3) History of iron deficiency SNOMED Code(s): 501317186 Code(s): Z86.39 - PERSONAL HISTORY OF ENDO, NUTRITIONAL AND METABOLIC DISEASE Status: Chronic Current Visit: Yes (4) Chronic kidney disease, stage III (moderate) SNOMED Code(s): 497658810 Code(s): N18.3 - CHRONIC KIDNEY DISEASE, STAGE 3 (MODERATE) Status: Chronic Current Visit: Yes (5) Bilateral lower extremity edema SNOMED Code(s): 481453655 Code(s): R60.0 - LOCALIZED EDEMA Status: Chronic Current Visit: Yes (6) Vertigo SNOMED Code(s): 141598013 Code(s): R42 - DIZZINESS AND GIDDINESS Status: Acute Priority: High Current Visit: Yes (7) Left leg cellulitis SNOMED Code(s): 197061637 Code(s): L03.116 - CELLULITIS OF LEFT LOWER LIMB Status: Acute Current Visit: Yes - Problem List Review Problem List Initiated/Reviewed/Updated: Yes - My Orders Last 24 Hours: My Active Orders 03/09/17 13:35 Meclizine [Antivert] 25 mg PO Q8H PRN 03/09/17 13:48 Acetaminophen/oxyCODONE [Percocet 325-5 MG] 1 tab PO DAILY PRN Betamethasone/Clotrimazole [Lotrisone] 0 gm TOP BID PRN Codeine/Promethazine [Phenergan with Codeine] 5 ml PO DAILY PRN Fluticasone Propionate [Flonase] 0 gm NASBOTH DAILY PRN Furosemide [Lasix] 20 mg PO DAILY PRN Nitroglycerin [Nitrostat] 0.4 mg SL Q5M PRN 03/09/17 14:00 Acetaminophen [Tylenol Extra Strength] 1,000 mg PO BID Atenolol [Tenormin] 50 mg PO DAILY Calcium Carbonate/Vitamin D3 [Calcium Carbonate/Vitamin D 1250 MG-200 Unit] 1 tab PO DAILY Cholecalciferol (Vitamin D3) [Vitamin D3] 1,000 units PO DAILY Fish Oil/[place]-3 Fatty Acids [Fish Oil] 1,000 mg PO BID Gluc/Stefano-Msm#2/C/D3/Ranjan/Born [Sdllmogcno-Fykhfgmbfwn-HQR] 1,500 mg PO TID Lisinopril [Prinivil] 2.5 mg PO DAILY Multivitamins,Therapeutic [Thera] 1 each PO DAILY Pantoprazole [ProTONIX] 40 mg PO ACBREAKFAST Ubidecarenone [Coenzyme Q10] 100 mg PO DAILY amLODIPine [Norvasc] 5 mg PO DAILY 03/09/17 17:00 Sucralfate [Carafate] 1 gm PO QIDACANDBED 03/09/17 21:00 Simvastatin [Zocor] 40 mg PO BEDTIME - Plan Plan:: Dizziness most likely from vertigo continue with meclizine orally continue Physical therapy TSH, magnesium, and phosphorus are within normal limits bilateral Lower extremities edema with possible left lower extremity cellulitis bilateral ultrasound was venous Doppler is negative for DVT BNP within normal limits -start Keflex orally lymphedema wrap and for both leg to improve circulation possible sinus infection Keflex orally saline nasal spray and Degenerative joint disease, chronic resume her oxycodone/acetaminophen Physical therapy Essential hypertension Continue with amlodipine and lisinopril History of coronary artery disease, stable No signs or symptoms of acute coronary syndrome Resume home medications History of iron deficiency anemia Hemoglobin is normal heparin for DVT prophylaxis Patient wants to be full code
[2017-03-10] MEDS: Acetaminophen 500 MG Tab PO SCH ×2 (09:21→21:30)
[2017-03-10] MEDS: Calcium Carbonate/Vitamin D3 1250 MG-200 Unit Tab PO SCH (09:22)
[2017-03-10] MEDS: Sucralfate 1 GM Tab PO SCH ×4 (09:22→21:29)
[2017-03-10] MEDS: Multivitamins,Therapeutic Tab PO SCH (09:23)
[2017-03-10] MEDS: amLODIPine 5 MG Tab PO SCH (09:23)
[2017-03-10] MEDS: Atenolol 50 MG Tab PO SCH (09:24)
[2017-03-10] MEDS: Lisinopril 5 MG Tab PO SCH (09:25)
[2017-03-10] MEDS: FATTY ACIDS PO SCH (10:25)
[2017-03-10] MEDS: Non-Formulary Medication 1 Each (Gluc/Chon-Msm#2/C/D3/Mang/Born [Glucosamin-Chondroitin-Ms PO SCH (10:25)
[2017-03-10] MEDS: OMEGA PO SCH (10:25)
[2017-03-10] MEDS: FISH OIL PO SCH (10:25)
[2017-03-10] MEDS: Non-Formulary Medication 1 Each (Ubidecarenone [Coenzyme Q10] 100 MG) PO SCH (10:26)
[2017-03-10] MEDS: Cephalexin 500 MG Cap PO SCH ×2 (11:56→19:48)
[2017-03-10] MEDS: Furosemide 20 MG Tab PO SCH (11:56)
[2017-03-10] MEDS: Meclizine 12.5 MG Tab PO PRN ×2 (11:57→21:29)
[2017-03-10] MEDS: Simvastatin 40 MG Tab PO SCH (21:30)
[2017-03-11] MEDS: Cephalexin 500 MG Cap PO SCH ×3 (01:26→12:29)
[2017-03-11] MEDS: Pantoprazole 40 MG Tab.CR PO SCH (06:33)
[2017-03-11] MEDS: Heparin Sodium 5,000 Units/ML Vial SUBCUT SCH (06:34)
[2017-03-11 07:15] LABS: CHLORIDE,CL 106 mmol/L (101-111); SODIUM,NA 139 mmol/L (135-145)
[2017-03-11] MEDS: Calcium Carbonate/Vitamin D3 1250 MG-200 Unit Tab PO SCH (08:30)
[2017-03-11] MEDS: Multivitamins,Therapeutic Tab PO SCH (08:31)
[2017-03-11] MEDS: Sucralfate 1 GM Tab PO SCH ×2 (08:31→10:50)
[2017-03-11] MEDS: Furosemide 20 MG Tab PO SCH (08:32)
[2017-03-11] MEDS: Acetaminophen 500 MG Tab PO SCH (08:32)
[2017-03-11] MEDS: Atenolol 50 MG Tab PO SCH (08:33)
[2017-03-11] MEDS: amLODIPine 5 MG Tab PO SCH (08:33)
[2017-03-11] MEDS: Cholecalciferol (Vitamin D3) 400 Unit Tab PO SCH (08:34)
[2017-03-11] MEDS: Lisinopril 5 MG Tab PO SCH (08:35)
[2017-03-11] MEDS: Meclizine 12.5 MG Tab PO PRN (08:39)
[2017-03-11] MEDS ORDERED: Potassium Chloride 10 MEQ Tab.ER PO ONE (09:52)
--- NOTE | 2017-03-11 11:19 | PCM.DCSUM1 ---
Discharge Summary - Hospital Course Free Text/Narrative:: 82-year-old female with past medical history of coronary artery disease, chronic kidney disease stage III, diverticulosis, degenerative joint disease, hypertension, iron injections anemia, spinal stenosis of lumbar region presented to emergency room for having dizziness. Patient stated that about 6 clock on day of admission she woke up and while in bed she started feeling spinning dizziness which got worse with head and body movements. She was unbalanced when tried to walk. She felt better when she held still. She had no other complaints other than fullness in her left ear started the day before admission and warmth in her left leg for the last several weeks. symptoms with the dizziness are nausea and one episode of vomiting while in ER. she denied fever, chills, sinus congestion, sore throat, chest pain, shortness breath, cough, abdomen pain, urinary symptoms, unilateral weakness/numbness/tingling, or any other symptoms. She admitted having sinus infection for 6 weeks in November also at the same time she was treated for left leg cellulitis. She denies history of congestive heart failure. In the emergency room her EKG was unremarkable for ST changes. lab work up revealed WBC 4.6. Hemoglobin 12.1. Sodium 139. Potassium 3.6. Creatinine 0.6. GFR more than 60. Random blood glucose 122. troponin less than 0.02. UA is unremarkable. she received diazepam 5 mg IV once, dexamethasone 20 mg IV once, meclizine 25 mg p.o. one, and 1 L of normal saline as a bolus. she was admitted for observation for further workup and management. she had physical therapy with eply maneuver which helped. Yesterday she was started in Keflex for possible left leg cellulitis. 2 the patient is feeling better and she wants to go home. - Discharge Data Discharge Date: 03/11/17 Discharge Disposition: Home, Self-Care 01 Condition: Good - Discharge Diagnosis/Problem(s) (1) History of coronary artery disease SNOMED Code(s): 491311138 ICD Code: Z86.79 - PERSONAL HISTORY OF OTHER DISEASES OF THE CIRCULATORY SYSTEM Status: Chronic Current Visit: Yes (2) Degenerative joint disease SNOMED Code(s): 120212362 ICD Code: M19.90 - UNSPECIFIED OSTEOARTHRITIS, UNSPECIFIED SITE Status: Chronic Current Visit: Yes (3) History of iron deficiency SNOMED Code(s): 306578553 ICD Code: Z86.39 - PERSONAL HISTORY OF ENDO, NUTRITIONAL AND METABOLIC DISEASE Status: Chronic Current Visit: Yes (4) Chronic kidney disease, stage III (moderate) SNOMED Code(s): 317728591 ICD Code: N18.3 - CHRONIC KIDNEY DISEASE, STAGE 3 (MODERATE) Status: Chronic Current Visit: Yes (5) Bilateral lower extremity edema SNOMED Code(s): 546599499 ICD Code: R60.0 - LOCALIZED EDEMA Status: Chronic Current Visit: Yes (6) Vertigo SNOMED Code(s): 619616085 ICD Code: R42 - DIZZINESS AND GIDDINESS Status: Acute Priority: High Current Visit: Yes (7) Left leg cellulitis SNOMED Code(s): 046066343 ICD Code: L03.116 - CELLULITIS OF LEFT LOWER LIMB Status: Acute Current Visit: Yes - Patient Summary/Data Consults: Consultations 03/10/17 09:16 OT Evaluation and Treatment [CONS] Routine - Patient Instructions Diet: Heart Healthy Diet Showering/Bathing: May Shower - Discharge Plan Prescriptions/Med Rec: Cephalexin [IJD: Cephalexin] 500 mg PO Q6HR 9 Days Meclizine [Antivert] 25 mg PO Q8H PRN #10 tablet PRN Reason: Dizziness Home Medications: Home Meds Atenolol [Tenormin] 50 mg PO DAILY 10/04/14 [History] Calcium Carb & Citrate/Vit D3 [Calcium + D3 ER Tablet] 1 tab PO DAILY 10/04/14 [ History] Cranberry 1,000 mg PO DAILY 10/04/14 [History] Fish Oil/[place]-3 Fatty Acids [Fish Oil] 1,000 mg PO BID 10/04/14 [History] Gluc/Stefano-Msm#2/C/D3/Ranjan/Born [Inyojfeulq-Smyxtuzests-NZV] 1,500 mg PO TID 04/12 [History] Pantoprazole Sodium [Protonix] 40 mg PO DAILY 10/04/14 [History] Simvastatin [Zocor] 40 mg PO DAILY 10/04/14 [History] amLODIPine [Norvasc] 5 mg PO DAILY 10/04/14 [History] Cholecalciferol (Vitamin D3) [Vitamin D3] 1,000 unit PO DAILY 12/25/14 [History] Clotrimazole/Betamethasone Dip [Lotrisone Cream] 1 gm TOP BID PRN 12/25/14 [ History] Fluticasone Propionate [Flonase] 2 spray NASBOTH DAILY PRN 12/25/14 [History] Ubidecarenone [Coenzyme Q10] 100 mg PO DAILY 12/25/14 [History] oxyCODONE HCl/Acetaminophen [Endocet 5-325 Tablet] 1 tab PO DAILY PRN 12/25/14 [ History] Acetaminophen [Tylenol Extra Strength] 2 tab PO BID 12/26/14 [History] Sucralfate 1 gm PO QID 09/20/16 [History] Codeine/Promethazine [Phenergan with Codeine] 5 ml PO DAILY PRN 03/09/17 [ History] Furosemide 20 mg PO DAILY PRN 03/09/17 [History] Lisinopril 2.5 mg PO DAILY 03/09/17 [History] Multivitamin [Multiple Vitamins] 1 each PO DAILY 03/09/17 [History] Nitroglycerin [Nitrostat] 0.4 mg SL Q5M PRN 03/09/17 [History] Ondansetron HCl [Zofran] 4 mg PO Q6HR PRN 03/09/17 [History] Patient's Own Medication [Ptom] 26 mcg VAG .TWICE A WEEK 03/09/17 [History] Cephalexin [IJD: Cephalexin] 500 mg PO Q6HR 9 Days 03/11/17 [Rx] Meclizine [Antivert] 25 mg PO Q8H PRN #10 tablet 03/11/17 [Rx] Patient Handouts: Vertigo, [id number]-we-Jpnf, Dizziness, [id number]-ll-[id number] Referrals: PCP,Unobtain [Primary Care Provider] - - General Info Functional Status: Reports: pain controlled - Review of Systems General: Reports: No Symptoms HEENT: Reports: no symptoms Pulmonary: Reports: no symptoms Cardiovascular: Reports: No Symptoms Gastrointestinal: Reports: No symptoms Genitourinary: Reports: no symptoms Musculoskeletal: Reports: no symptoms Skin: Reports: no symptoms Neurological: Reports: No Symptoms Psychiatric: Reports: no symptoms - Patient Data Vitals - Most Recent: Last Vital Signs Temp 36.9 C 03/11/17 07:39 Pulse 61 03/11/17 08:33 Resp 20 03/11/17 07:39 BP 122/48 L 03/11/17 08:35 Pulse Ox 97 03/11/17 07:39 Weight - Most Recent: 96.706 kg I&O - Last 24 hours: Intake & Output 03/10/17 03/11/17 03/11/17 22:59 06:59 14:59 Intake Total 350 400 665 Output Total 700 Balance 350 400 -35 Lab Results - Last 24 hrs: Laboratory Results - last 24 hr 03/11/17 Range/Units 06:25 Sodium 139 (135-145) mmol/L Potassium 3.4 L (3.6-5.0) mmol/L Chloride 106 (101-111) mmol/L Carbon Dioxide 27.0 (21.0-31.0) mmol/L Anion Gap 9.4 BUN 20 H (7-18) mg/dL Creatinine 0.8 (0.6-1.3) mg/dL Est Cr Clr Drug Dosing 51.03 mL/min Estimated GFR (MDRD) > 60 Glucose 121 H (74-105) mg/dL Calcium 9.3 (8.4-10.2) mg/dl Med Orders - Current: Current Medications Acetaminophen (Tylenol) 650 mg PO Q4H PRN PRN Reason: Pain (Mild 1-3)/fever Last Admin: 03/11/17 01:30 Dose: 650 mg Acetaminophen (Tylenol Extra Strength) 1,000 mg PO BID REPLACED BY [facility] Last Admin: 03/11/17 08:32 Dose: 1,000 mg Amlodipine Besylate (Norvasc) 5 mg PO DAILY REPLACED BY [facility] Last Admin: 03/11/17 08:33 Dose: 5 mg Atenolol (Tenormin) 50 mg PO DAILY REPLACED BY [facility] Last Admin: 03/11/17 08:33 Dose: 50 mg Betamethasone/Clotrimazole (Lotrisone) 0 gm TOP BID PRN PRN Reason: Rash Calcium Carbonate (Calcium Carbonate/Vitamin D 1250 Mg-200 Unit) 1 tab PO DAILY REPLACED BY [facility] Last Admin: 03/11/17 08:30 Dose: 1 tab Cephalexin (Keflex) 500 mg PO Q6HR REPLACED BY [facility] Last Admin: 03/11/17 06:33 Dose: 500 mg Cholecalciferol (Vitamin D3) 1,000 units PO DAILY REPLACED BY [facility] Last Admin: 03/11/17 08:34 Dose: 1,000 units Fluticasone Propionate (Flonase) 0 gm NASBOTH DAILY PRN PRN Reason: Allergies Furosemide (Lasix) 20 mg PO DAILY REPLACED BY [facility] Last Admin: 03/11/17 08:32 Dose: 20 mg Heparin Sodium (Porcine) (Heparin Sodium) 5,000 units SUBCUT Q8HR REPLACED BY [facility] Last Admin: 03/11/17 06:34 Dose: 5,000 units Lisinopril (Prinivil) 2.5 mg PO DAILY REPLACED BY [facility] Last Admin: 03/11/17 08:35 Dose: 2.5 mg Meclizine HCl (Antivert) 25 mg PO Q8H PRN PRN Reason: Dizziness Last Admin: 03/11/17 08:39 Dose: 25 mg Morphine Sulfate (Morphine) 2 mg IVPUSH Q2H PRN PRN Reason: Pain (severe 7-10) Multivitamins (Thera) 1 each PO DAILY REPLACED BY [facility] Last Admin: 03/11/17 08:31 Dose: 1 each Nitroglycerin (Nitrostat) 0.4 mg SL Q5M PRN PRN Reason: Chest Pain Ondansetron HCl (Zofran) 4 mg IVPUSH Q6H PRN PRN Reason: Nausea/Vomiting Oxycodone/Acetaminophen (Percocet 325-5 Mg) 1 tab PO DAILY PRN PRN Reason: Pain Pantoprazole Sodium (Protonix) 40 mg PO ACBREAKFAST REPLACED BY [facility] Last Admin: 03/11/17 06:33 Dose: 40 mg Polyethylene Glycol (Miralax) 17 gm PO DAILY PRN PRN Reason: Constipation Promethazine HCl (Phenergan) 6.25 mg IM Q6H PRN PRN Reason: Nausea/Vomiting Promethazine HCl/Codeine (Phenergan With Codeine) 5 ml PO DAILY PRN PRN Reason: Cough Simvastatin (Zocor) 40 mg PO BEDTIME REPLACED BY [facility] Last Admin: 03/10/17 21:30 Dose: 40 mg Sodium Chloride (Saline Flush) 10 ml FLUSH ASDIRECTED PRN PRN Reason: Keep Vein Open Last Admin: 03/09/17 21:09 Dose: 10 ml Sodium Chloride ([place] Nasal [place]) 0 ml GARRET Q2H PRN PRN Reason: Nasal congestion Sucralfate (Carafate) 1 gm PO QIDACANDBED REPLACED BY [facility] Last Admin: 03/11/17 10:50 Dose: 1 gm Discontinued Medications Dexamethasone (Dexamethasone) 20 mg IVPUSH ONETIME ONE Stop: 03/09/17 09:45 Last Admin: 03/09/17 10:11 Dose: 20 mg Diazepam (Valium) 5 mg IVPUSH ONETIME ONE Stop: 03/09/17 09:45 Last Admin: 03/09/17 10:13 Dose: 5 mg Furosemide (Lasix) 20 mg PO DAILY PRN PRN Reason: Other Sodium Chloride (Normal Saline) 1,000 mls @ 999 mls/hr IV .BOLUS ONE Stop: 03/09/17 10:43 Last Admin: 03/09/17 10:07 Dose: 999 mls/hr Meclizine HCl (Antivert) 25 mg PO ONETIME ONE Stop: 03/09/17 09:45 Last Admin: 03/09/17 10:17 Dose: 25 mg Non-Formulary Medication (Fish Oil/[place]-3 Fatty Acids [Fish Oil]) 1,000 mg PO BID REPLACED BY [facility] Last Admin: 03/10/17 10:25 Dose: Not Given Non-Formulary Medication (Gluc/Stefano-Msm#2/C/D3/Ranjan/Born [Glucosamin-Chondroitin -Msm]) 1,500 mg PO TID REPLACED BY [facility] Last Admin: 03/10/17 10:25 Dose: Not Given Non-Formulary Medication (Ubidecarenone [Coenzyme Q10]) 100 mg PO DAILY REPLACED BY [facility] Last Admin: 03/10/17 10:26 Dose: Not Given Potassium Chloride (Klor-Con 10) 20 meq PO ONETIME ONE Stop: 03/11/17 09:53 Last Admin: 03/11/17 10:50 Dose: 20 meq - Exam General: Reports: alert, oriented, cooperative, no acute distress. Denies: mild distress, moderate distress, severe distress, sedated, lethargic, obtunded HEENT: Reports: Pupils equal, Pupils reactive, EOMI, Mucous membr. moist/pink Neck: Reports: supple, trachea midline, no JVD Lungs: Reports: Clear to auscultation, Normal respiratory effort Cardiovascular: Reports: Regular Rate, Regular Rhythm Abdomen: Reports: bowel sounds present, soft, no tenderness, no distension (Female) Exam: Deferred Rectal (Female) Exam: Deferred Back Exam: Reports: Normal Inspection, Full Range of Motion Extremities: Reports: normal pulses, no tenderness/swelling, no clubbing, no cyanosis, no calf tenderness, calf tenderness, edema (edema of lower extremities improved after using lymphedema wraps yesterday) Skin: Reports: other (her left leg erythema improved) Neurological: Reports: no new focal deficit Psy/Mental Status: Reports: alert, normal affect, normal mood *Q Meaningful Use (DIS) - VTE *Q VTE Criteria *Q: - Stroke *Q Stroke Criteria *Q: - AMI *Q AMI Criteria *Q:
[2017-03-11 11:41] VITALS: BP 121/51
--- NOTE | 2017-03-13 11:57 | EKG ---
03/09/2017 - CHRISTI RAMOS I reviewed the EKG and agree with the machine's reading. [facility] /[id number]
== END 2017-03-11 13:25 | disposition home or self-care (01) ==
LOC: DL.ED 09:14 → DL.MS 12:40 → UNDOADMOB 12:40 → DL.MS 13:17
PROVIDERS: ADMIT Family Medicine; ATTEND Family Medicine
DX: R42 Dizziness and giddiness (principal); I25.10 Atherosclerotic heart disease of native coronary artery without angina pectoris; M19.90 Unspecified osteoarthritis, unspecified site; I12.9 Hypertensive chronic kidney disease with stage 1 through stage 4 chronic kidney disease, or unspecified chronic kidney disease; N18.3 Chronic kidney disease, stage 3 (moderate); R60.0 Localized edema; L03.116 Cellulitis of left lower limb; E78.00 Pure hypercholesterolemia, unspecified; M81.0 Age-related osteoporosis without current pathological fracture; Z86.39 Personal history of other endocrine, nutritional and metabolic disease; Z95.5 Presence of coronary angioplasty implant and graft; Z90.710 Acquired absence of both cervix and uterus; Z90.49 Acquired absence of other specified parts of digestive tract; Z98.890 Other specified postprocedural states; Z79.899 Other long term (current) drug therapy
CPT/HCPCS: 36415; 80048; 80053; 81001; 83735; 83880; 84100; 84443; 84484; 85025; 93005; 93010; 93970; 96361; 96374; 96375; 97140; 97165; 99284; A9270; J1100; J1644; J3360; J7030; J7050; 96372; 97161-GP; 99217; 99225; G0378

== ENCOUNTER 2017-10-29 19:12 | Observation (INO) | payer MEDICARE, OTHER ==
--- NOTE | 2017-10-29 19:16 | EDM.PDOC ---
ED HPI GENERAL MEDICAL PROBLEM - General Chief Complaint: Cardiovascular Problem Stated Complaint: BY AMBULANCE Time Seen by Provider: 10/29/17 19:14 Source of Information: Reports: Patient History Limitations: Reports: No Limitations - History of Present Illness INITIAL COMMENTS - FREE TEXT/NARRATIVE: onset hear pounding 45 minutes ago now, took BP and it was high, denies CP/SOB/ MANCILLA was @ PMD's few days ago and BP was normal. states Sx occurred while baking a cake and was planning to make a crab dinner none of which she got to eat because heart suddenly started pounding. - Related Data Allergies Allergy/AdvReac Type Severity Reaction Status Date / Time atorvastatin [From Lipitor] Allergy Mild Muscle Verified 10/29/17 21:27 Aches aspirin Allergy tongue Verified 10/29/17 21:27 swelling guaifenesin [From Robitussin] Allergy Cannot Verified 10/29/17 21:27 Remember metronidazole Allergy Cannot Verified 10/29/17 21:27 Remember pravastatin Allergy Muscle Verified 10/29/17 21:27 Aches rosuvastatin Allergy Muscle Verified 10/29/17 21:27 Aches paroxetine HCl [From Paxil] AdvReac Unknown Nausea. Verified 10/29/17 21:27 Jittery. sulfamethoxazole AdvReac Unknown Bone pain Verified 10/29/17 21:27 [From Bactrim] trimethoprim [From Bactrim] AdvReac Unknown Bone pain Verified 10/29/17 21:27 propoxyphene napsylate AdvReac Nausea and Verified 10/29/17 21:27 [From Darvocet-N] Vomiting Home Meds: Home Meds Atenolol [Tenormin] 50 mg PO DAILY 10/04/14 [History] Calcium Carb & Citrate/Vit D3 [Calcium + D3 ER Tablet] 1 tab PO DAILY 10/04/14 [ History] Cranberry 1,000 mg PO DAILY 10/04/14 [History] Fish Oil/[place]-3 Fatty Acids [Fish Oil] 1,000 mg PO BID 10/04/14 [History] Gluc/Stefano-Msm#2/C/D3/Ranjan/Born [Ffyqnkhczh-Nyumzapzyim-WJN] 1,500 mg PO TID 04/12 [History] Pantoprazole Sodium [Protonix] 40 mg PO DAILY 10/04/14 [History] Simvastatin [Zocor] 40 mg PO DAILY 10/04/14 [History] amLODIPine [Norvasc] 5 mg PO DAILY 10/04/14 [History] Cholecalciferol (Vitamin D3) [Vitamin D3] 1,000 unit PO DAILY 12/25/14 [History] Clotrimazole/Betamethasone Dip [Lotrisone Cream] 1 gm TOP BID PRN 12/25/14 [ History] Fluticasone Propionate [Flonase] 2 spray NASBOTH DAILY PRN 12/25/14 [History] Ubidecarenone [Coenzyme Q10] 100 mg PO DAILY 12/25/14 [History] oxyCODONE HCl/Acetaminophen [Endocet 5-325 Tablet] 1 tab PO DAILY PRN 12/25/14 [ History] Acetaminophen [Tylenol Extra Strength] 2 tab PO BID 12/26/14 [History] Sucralfate 1 gm PO QID 09/20/16 [History] Codeine/Promethazine [Phenergan with Codeine] 5 ml PO DAILY PRN 03/09/17 [ History] Furosemide 20 mg PO DAILY PRN 03/09/17 [History] Lisinopril 2.5 mg PO DAILY 03/09/17 [History] Multivitamin [Multiple Vitamins] 1 each PO DAILY 03/09/17 [History] Nitroglycerin [Nitrostat] 0.4 mg SL Q5M PRN 03/09/17 [History] Ondansetron HCl [Zofran] 4 mg PO Q6HR PRN 03/09/17 [History] Patient's Own Medication [Ptom] 26 mcg VAG .TWICE A WEEK 03/09/17 [History] Cephalexin [IJD: Cephalexin] 500 mg PO Q6HR 9 Days capsule 03/11/17 [Rx] Meclizine [Antivert] 25 mg PO Q8H PRN #10 tablet 03/11/17 [Rx] Past Medical History HEENT History: Reports: Macular Degeneration Cardiovascular History: Reports: CAD, High Cholesterol, Hypertension, SOB on Exertion, Stents Respiratory History: Reports: SOB Gastrointestinal History: Reports: Diverticulosis, GERD Other Gastrointestinal History: HX ulcer Genitourinary History: Reports: Chronic Renal Insuffiency, UTI, Recurrent Other Genitourinary History: freguent UTI TEAM GUIDE History: Reports: Other OB/BYN History: one miscarriage Musculoskeletal History: Reports: Arthritis, Osteoarthritis, Osteoporosis, Other (See Below) Other Musculoskeletal History: spinal stenosis, DJD Neurological History: Reports: Vertigo Psychiatric History: Reports: None Endocrine/Metabolic History: Reports: Obesity/BMI 30+, Osteopenia, Osteoporosis Hematologic History: Reports: Anemia, Iron Deficiency, Other (See Below) Other Hematologic History: neutropenia, microalbuminuria Immunologic History: Reports: None Oncologic (Cancer) History: Reports: Colon Dermatologic History: Reports: Benign Melanoma, Cellulitis, Other (See Below) Other Dermatologic History: rosacea - Infectious Disease History Infectious Disease History: Reports: Chicken Pox, Influenza, Measles, Mumps, Pertussis (Whooping Cough) - Past Surgical History HEENT Surgical History: Reports: Adenoidectomy, Naso-Sinus Surgery, Tonsillectomy Cardiovascular Surgical History: Reports: Coronary Artery Stent, Other (See Below) Female Surgical History: Reports: Breast Biopsy, Hysterectomy, Other (See Below) Dermatological Surgical History: Reports: Other (See Below) Social & Family History - Family History Family Medical History: Noncontributory HEENT: Reports: Cataract, Macular Degeneration Cardiac: Reports: Other (See Below) Other Cardiac Family History: leaky valve Respiratory: Reports: None GI: Reports: None : Reports: Other (See Below) Other Family History: mother had bladder infection OBGYN: Reports: Musculoskeletal: Reports: Arthritis, Osteoarthritis Neurological: Reports: Other (See Below) Other Neurological Family History: mother was anxious Psychiatric: Reports: None Endocrine/Metabolic: Reports: Osteoporosis Hematologic: Reports: Anemia Immunologic: Reports: None Dermatologic: Reports: None Oncologic: Reports: Colon, Prostate - Tobacco Use Smoking Status *Q: Never Smoker Used Tobacco, but Quit: No Second Hand Smoke Exposure: No - Caffeine Use Caffeine Use: Reports: None - Alcohol Use Days Per Week of Alcohol Use: 0 - Recreational Drug Use Recreational Drug Use: No Drug Use in Last 12 Months: No - Living Situation & Occupation Living situation: Reports: , Alone Occupation: Retired ED ROS GENERAL - Review of Systems Review Of Systems: ROS reveals no pertinent complaints other than HPI. ED EXAM, GENERAL - Physical Exam Exam: See Below Exam Limited By: No Limitations General Appearance: Alert, WD/WN, Anxious, Mild Distress, Other (upset) Ears: Hearing Grossly Normal Throat/Mouth: Normal Voice, No Airway Compromise Head: Atraumatic Neck: Non-Tender, Full Range of Motion Respiratory/Chest: No Respiratory Distress Cardiovascular: Regular Rate, Rhythm GI/Abdominal: Soft, Non-Tender Neurological: Alert, Oriented, Normal Cognition, Normal Gait, No Motor/Sensory Deficits Psychiatric: Anxious Skin Exam: Warm, Dry, Normal Color Lymphatic: No Adenopathy Course - Vital Signs Last Recorded V/S: Last Vital Signs Temp 37.0 C 10/29/17 19:18 Pulse 103 H 10/29/17 19:18 Resp 20 10/29/17 19:18 BP 135/68 10/29/17 19:18 Pulse Ox 99 10/29/17 19:18 - Orders/Labs/Meds Orders: Active Orders 24 hr Category Date Time Status EKG Documentation Completion [RC] STAT Care 10/29/17 19:16 Active Labs: Laboratory Tests 10/29/17 10/29/17 Range/Units 19:30 19:30 WBC 7.0 (5.0-10.0) 10^3/uL RBC 4.07 L (4.2-5.4) 10^6/uL Hgb 12.0 (12.0-16.0) g/dL Hct 36.6 L (37.0-47.0) % MCV 89.9 (80-100) fL MCH 29.5 (27.0-34.0) pg MCHC 32.8 L (33.0-35.0) g/dL Plt Count 201 (150-450) 10^3/uL Neut % (Auto) 28.7 L (42.2-75.2) % Lymph % (Auto) 61.7 H (20.5-50.1) % [place] % (Auto) 7.6 (2-8) % Eos % (Auto) 1.7 (1.0-3.0) % Baso % (Auto) 0.3 (0.0-1.0) % Sodium 140 (135-145) mmol/L Potassium 3.3 L (3.6-5.0) mmol/L Chloride 103 (101-111) mmol/L Carbon Dioxide 27.0 (21.0-31.0) mmol/L Anion Gap 13.3 BUN 11 (7-18) mg/dL Creatinine 0.7 (0.6-1.3) mg/dL Est Cr Clr Drug Dosing 57.10 mL/min Estimated GFR (MDRD) > 60 BUN/Creatinine Ratio 15.71 Glucose 117 H (74-105) mg/dL Calcium 9.7 (8.4-10.2) mg/dl Total Bilirubin 0.7 (0.2-1.0) mg/dL AST 25 (10-42) IU/L ALT 23 (10-60) IU/L Alkaline Phosphatase 71 (42-121) IU/L Troponin I < 0.02 (0.00-0.02) ng/ml B-Natriuretic Peptide 37 (0-100) pg/ml Total Protein 7.5 (6.7-8.2) g/dl Albumin 4.4 (3.2-5.5) g/dl Globulin 3.1 Albumin/Globulin Ratio 1.42 - Re-Assessments/Exams Free Text/Narrative Re-Assessment/Exam: 10/29/17 20:04 re-exam; BP back to normal. pt states feels "jittery" 10/29/17 20:38 re-exam; still feels jittery and lives alone denies CP/SOB/MANCILLA but just doesn't feel good. 10/29/17 21:[address] Smith who kindly admitted pt to observation Departure - Departure Time of Disposition: 21:40 Disposition: Refer to Observation Condition: Good Clinical Impression: Heart palpitations Hypertension Qualifiers: Hypertension type: unspecified Qualified Code(s): I10 - Essential (primary) hypertension Forms: ED Department Discharge - My Orders Last 24 Hours: My Active Orders 10/29/17 19:16 EKG Documentation Completion [RC] STAT - Assessment/Plan Last 24 Hours: My Active Orders 10/29/17 19:16 EKG Documentation Completion [RC] STAT
[2017-10-29 19:55] LABS: ANION GAP 13.3; CHLORIDE,CL 103 mmol/L (101-111); SODIUM,NA 140 mmol/L (135-145)
[2017-10-29] MEDS ORDERED: Acetaminophen 325 MG Tab PO PRN (22:48)
[2017-10-29] MEDS ORDERED: Bisacodyl 10 MG Supp RECTAL PRN (22:48)
[2017-10-29] MEDS ORDERED: Magnesium Hydroxide 400 MG/5 ML Susp 30 ML Cup PO PRN (22:48)
[2017-10-29] MEDS ORDERED: Potassium Chloride 10 MEQ Tab.ER PO ONE (22:57)
[2017-10-29] MEDS ORDERED: Furosemide 20 MG Tab PO PRN (22:57)
[2017-10-30] MEDS ORDERED: Pantoprazole 40 MG Tab.CR PO SCH (06:00)
[2017-10-30] MEDS: Sucralfate 1 GM Tab PO SCH ×2 (08:35→13:23)
[2017-10-30] MEDS ORDERED: Acetaminophen 500 MG Tab PO SCH (09:00)
[2017-10-30] MEDS ORDERED: Atenolol 50 MG Tab PO SCH (09:00)
[2017-10-30] MEDS ORDERED: amLODIPine 5 MG Tab PO SCH (09:00)
[2017-10-30] MEDS ORDERED: Lisinopril 5 MG Tab PO SCH (09:00)
[2017-10-30] MEDS ORDERED: Atenolol 50 MG Tab PO ONE (14:07)
[2017-10-30 15:04] VITALS: BP 98/37
--- NOTE | 2017-10-30 21:46 | EKG ---
10/30/2017 - CHRISTI RAMOS - This 12-lead EKG shows a normal sinus rhythm with a ventricular rate of 74. Left axis deviation. Poor R-wave progression. No acute ST-segment or T-wave changes. Wandering baseline seen in the limb leads. [facility] /[id number] MTDD
[2017-10-31] MEDS ORDERED: Atenolol 50 MG Tab PO SCH (09:00)
--- NOTE | 2017-10-31 09:08 | HP ---
ADMISSION H&P/DISCHARGE SUMMARY CHIEF COMPLAINT AT THE TIME OF ADMISSION: Palpitations. DISCHARGE DIAGNOSES: 1. Subjective complaint of palpitations. No sustained ectopy seen on telemetry overnight. 2. The patient states blood pressure was elevated at home, however, all blood pressure readings in the Emergency Department and on the inpatient unit were within normal limits. 3. Hypokalemia, mild, corrected. 4. Anxiety disorder. 5. Past medical history as outlined below in the past medical history. BRIEF HISTORY OF PRESENT ILLNESS: Mrs. Toussaint is an 82-year-old lady, who lives alone in her own home here in [place]. She stated that she was enjoying preparing a meal that she was looking forward to eating when she felt she was having palpitations. There was no syncope. No loss of consciousness. No falls. She stated that she took her blood pressure and it was quite elevated. She also mentioned that she continued to take the blood pressure over and over, which may have contributed to the higher readings; it is not clear. She states that the ambulance also got an elevated blood pressure, but no blood pressures were elevated on arrival. It was decided that she would be admitted overnight under observation, and she remained on cardiac telemetry. PAST MEDICAL HISTORY: 1. Coronary artery disease with previous angioplasty and stenting. She has two stents in the LAD, one placed in 2007, the other [place] [address] Parks. 2. Dyslipidemia. 3. Hypertension. 4. Degenerative joint disease of the knees. 5. Osteopenia. 6. Diverticulosis. 7. She has had multiple cardiac stress tests. 8. Which have been negative. 9. Chronic kidney disease stage 3, followed by Dr. Cagle. PAST SURGICAL HISTORY: 1. Cardiac catheterization, 2007 and 2009, with a stent placed in the LAD at each event. 2. Tonsils and adenoids. 3. Bilateral varicose vein surgery. 4. Hysterectomy for fibroids. 5. Cholecystectomy. 6. Has had several colonoscopies, which showed diverticulosis. 7. Benign breast biopsies in the 1960s. SOCIAL HISTORY: She is . She lives here in [place]. She has a daughter who lives nearby. She is very socially active. She does work in her christian and other community groups. Has never smoked cigarettes, and does not drink alcohol. IMMUNIZATION HISTORY: Does get the annual flu vaccine, although the most recent flu vaccine is not yet noted in her chart. 1. PCV13, 03/06/2015. 2. PPV23, 12/23/2010. 3. PCV7, 07/09/1999. 4. Tdap, 02/25/2013. 5. Shingles, 05/14/2013. CURRENT MEDICATIONS: Mrs. Toussaint has a very long list of medications, many of which are homeopathic and [id number]. These will be found in [facility] and have been reviewed and reconciled. Only her relevant medications were continued during the admission. ALLERGIES: She has multiple allergies and intolerances including paroxetine (nausea), aspirin, atorvastatin, metronidazole, pravastatin, propoxyphene, rosuvastatin, Bactrim. PHYSICAL EXAMINATION: GENERAL: Both on the night of admission and the morning of discharge showed a pleasant lady, in no acute distress. Vital Signs: Blood pressure at the time of admission was 136/61 on the left, 132/73 on the right. Pulse 86 and regular, respiratory rate 18 and nonlabored, and oxygen saturation 99% on room air, temperature 98.3. Height 5 feet 6 inches, weight 204 pounds. HEENT: Unremarkable. ENT was clear. No JVDs or bruits. No adenopathy. Chest: Showed clear bilateral breath sounds without wheezes, rales, or rhonchi. Heart: Showed regular rate and rhythm without murmurs, rubs, or gallops. Abdomen: Soft, obese, and benign. Extremities: Showed only a trace of chronic edema. Neurological: There were no gross motor or sensory deficits. LABORATORY DATA: CBC showed normal white count and platelets. Hemoglobin and hematocrit were 12 and 36.6. Chemistry showed initial potassium of 3.3 and 3.8 on morning of discharge. BUN and creatinine were 11 and 0.7 with a GFR of more than 60. LFTs were unremarkable. Troponin was negative x2 at less than 0.02. BNP was 37. A 12-lead EKG showed a normal sinus rhythm with a ventricular rate of 74. Left axis deviation. Poor R-wave progression. No acute ST-T wave changes. A single-view chest x-ray was performed and showed no acute infiltrate, no pulmonary venous congestion, and was a benign film. IMPRESSION: An 82-year-old lady, who complained of palpitations without chest pain. She has long history of coronary artery disease. She was admitted for overnight observation and remained on cardiac telemetry. Her relevant medications were continued including atenolol, amlodipine, Carafate. She was given potassium chloride, lisinopril, furosemide. HOSPITAL COURSE: Mrs. Toussaint remained hemodynamically stable throughout the night. Only an occasional PVC was seen. There were no sustained runs of tachycardia or other ectopy or arrhythmia. Mrs. Toussaint was reassured that she was in good condition and that she could safely be discharged to home. She is a very nervous lady by nature and we tried to reassure her that she really was doing well. At 82, she is active, participates in her community, still is able to live alone and take care of herself. We did talk about the possibility of moving into Basic [facility] or Assisted Living and she absolutely rejected this as a choice and states that she will continue to live on her own. Her regular provider has been Dr. Krystal Hammer. Dr. Hammer has now opened her own office here in [place] and Mrs. Toussaint will be following up with Dr. Hammer, whom she has seen for a number of years. Mrs. Toussaint also suffers from occasional vertigo, and she would like to come in and be seen by Physical Therapy to once again go over the exercises that they use and are sometimes helpful for patients with vertigo due to middle ear problems. She will be discharged to home in good condition. She will call Dr. Hammer's office to arrange followup, and we will refer her also to Physical Therapy for followup on her vertigo. She can continue with her usual diet as tolerated, activity level as tolerated, she should seek care for any issues of concern. CONDITION AT THE TIME OF DISCHARGE: Hemodynamically neurologically stable with negative cardiac enzymes and no objective evidence for sustained ectopy or arrhythmia. CODE STATUS: Code status during this admission was full code. [facility] /[id number] MTDD
--- NOTE | 2017-11-01 21:20 | EKG ---
10/29/2017 - CHRISTI RAMOS - This is the first of two 12-lead EKGs performed during this admission. This EKG shows a normal sinus rhythm with a ventricular rate of 91. There are multiform PVCs. There are no acute ST-T wave changes. [facility] /[id number]
== END 2017-10-30 16:49 | disposition home or self-care (01) ==
LOC: DL.ED 19:12 → DL.MS 21:45 → UNDOADMOB 21:45 → DL.MS 22:48
PROVIDERS: ADMIT Internal Medicine; ATTEND Internal Medicine
DX: R00.2 Palpitations (principal); E87.6 Hypokalemia; F41.9 Anxiety disorder, unspecified; I25.10 Atherosclerotic heart disease of native coronary artery without angina pectoris; I12.9 Hypertensive chronic kidney disease with stage 1 through stage 4 chronic kidney disease, or unspecified chronic kidney disease; N18.3 Chronic kidney disease, stage 3 (moderate); D63.1 Anemia in chronic kidney disease; E78.5 Hyperlipidemia, unspecified; M17.0 Bilateral primary osteoarthritis of knee; M85.80 Other specified disorders of bone density and structure, unspecified site; K21.9 Gastro-esophageal reflux disease without esophagitis; H74.90 Unspecified disorder of middle ear and mastoid, unspecified ear; E66.9 Obesity, unspecified; Z68.32 Body mass index [BMI] 32.0-32.9, adult; Z87.440 Personal history of urinary (tract) infections; Z79.899 Other long term (current) drug therapy; Z88.1 Allergy status to other antibiotic agents; Z88.2 Allergy status to sulfonamides; Z88.8 Allergy status to other drugs, medicaments and biological substances; Z95.5 Presence of coronary angioplasty implant and graft; Z90.89 Acquired absence of other organs; Z90.710 Acquired absence of both cervix and uterus; Z90.49 Acquired absence of other specified parts of digestive tract; Z98.890 Other specified postprocedural states; R06.02 Shortness of breath
CPT/HCPCS: 36415; 71010; 80053; 83880; 84132; 84484; 85025; 93005; 93010; 99284; 99285; A9270; G0378; 99218

== ENCOUNTER 2017-11-01 12:13 | Emergency (ER) | payer MEDICARE, OTHER ==
--- NOTE | 2017-11-01 12:40 | EDM.PDOC ---
ED HPI GENERAL MEDICAL PROBLEM - General Chief Complaint: Cardiovascular Problem Stated Complaint: RAPID HEART BEAT / BY AMBULANCE Time Seen by Provider: 11/01/17 12:39 Source of Information: Reports: Patient, EMS, Old Records, Provider (Dr. Hammer), RN, RN Notes Reviewed History Limitations: Reports: No Limitations - History of Present Illness INITIAL COMMENTS - FREE TEXT/NARRATIVE: Arrives from home by ambulance with c/o high BP and rapid heart rate. Pt was admitted here over New Years with same CC but had a normal work up. Today she saw Dr. Hammer in clinic and had a 48 hour awake overnight monitor placed. She then went home and had lunch. Shortly after eating she reports onset of feeling flushed and slightly lightheaded, but did not think she was anywhere near fainting. She checked her BP and was very alarmed when she found it was 160's systolic, so she checked her pulse and became even more alarmed that it was 103 beats per minute so she called 911, and called Dr. Hammer's office. Paramedics reports finding pt to be normotensive and heart rate in the 80's to 90's with occasional PVC. On arrival to ER pt reports that her heart rate is still very fast and feels like it might "beat right out of my chest". A 12 lead EKG was immediately obtained and found to be SR with rate of 95. Pt stated that she can feel that her BP is "through the roof", but it was found to be 134/60. Pt was not happy when informed of her current vital signs. She denies chest pain , shortness of breath, nausea, abdominal pain, back pain, or headache. Denies cough, wheezing, edema, orthopnea, fever, or chills. Onset: Today, Sudden Duration: Constant Location: Reports: Chest Quality: Reports: Other (denies pain or pressure) Severity: Severe Improves with: Reports: None Worsens with: Reports: None Associated Symptoms: Reports: No Other Symptoms - Related Data Allergies Allergy/AdvReac Type Severity Reaction Status Date / Time atorvastatin [From Lipitor] Allergy Mild Muscle Verified 10/29/17 21:27 Aches aspirin Allergy tongue Verified 10/29/17 21:27 swelling guaifenesin [From Robitussin] Allergy Cannot Verified 10/29/17 21:27 Remember metronidazole Allergy Cannot Verified 10/29/17 21:27 Remember pravastatin Allergy Muscle Verified 10/29/17 21:27 Aches rosuvastatin Allergy Muscle Verified 10/29/17 21:27 Aches paroxetine HCl [From Paxil] AdvReac Unknown Nausea. Verified 10/29/17 21:27 Jittery. sulfamethoxazole AdvReac Unknown Bone pain Verified 10/29/17 21:27 [From Bactrim] trimethoprim [From Bactrim] AdvReac Unknown Bone pain Verified 10/29/17 21:27 propoxyphene napsylate AdvReac Nausea and Verified 10/29/17 21:27 [From Darvocet-N] Vomiting Home Meds: Home Meds Atenolol [Tenormin] 50 mg PO DAILY 10/04/14 [History] Calcium Carb & Citrate/Vit D3 [Calcium + D3 ER Tablet] 1 tab PO DAILY 10/04/14 [ History] Cranberry 1,000 mg PO DAILY 10/04/14 [History] Fish Oil/[place]-3 Fatty Acids [Fish Oil] 1,000 mg PO BID 10/04/14 [History] Gluc/Stefano-Msm#2/C/D3/Ranjan/Born [Ecyqxcpvgv-Rjscwfxlolg-AOI] 1,500 mg PO TID 04/12 [History] Pantoprazole Sodium [Protonix] 40 mg PO DAILY 10/04/14 [History] Simvastatin [Zocor] 40 mg PO DAILY 10/04/14 [History] amLODIPine [Norvasc] 5 mg PO DAILY 10/04/14 [History] Cholecalciferol (Vitamin D3) [Vitamin D3] 1,000 unit PO DAILY 12/25/14 [History] Clotrimazole/Betamethasone Dip [Lotrisone Cream] 1 gm TOP BID PRN 12/25/14 [ History] Fluticasone Propionate [Flonase] 2 spray NASBOTH DAILY PRN 12/25/14 [History] Ubidecarenone [Coenzyme Q10] 100 mg PO DAILY 12/25/14 [History] oxyCODONE HCl/Acetaminophen [Endocet 5-325 Tablet] 1 tab PO DAILY PRN 12/25/14 [ History] Acetaminophen [Tylenol Extra Strength] 2 tab PO BID 12/26/14 [History] Sucralfate 1 gm PO QID 09/20/16 [History] Codeine/Promethazine [Phenergan with Codeine] 5 ml PO DAILY PRN 03/09/17 [ History] Furosemide 20 mg PO DAILY PRN 03/09/17 [History] Lisinopril 2.5 mg PO DAILY 03/09/17 [History] Multivitamin [Multiple Vitamins] 1 each PO DAILY 03/09/17 [History] Nitroglycerin [Nitrostat] 0.4 mg SL Q5M PRN 03/09/17 [History] Ondansetron HCl [Zofran] 4 mg PO Q6HR PRN 03/09/17 [History] Patient's Own Medication [Ptom] 26 mcg VAG .TWICE A WEEK 03/09/17 [History] Cephalexin [IJD: Cephalexin] 500 mg PO Q6HR 9 Days capsule 03/11/17 [Rx] Meclizine [Antivert] 25 mg PO Q8H PRN #10 tablet 03/11/17 [Rx] Past Medical History HEENT History: Reports: Macular Degeneration Cardiovascular History: Reports: CAD, High Cholesterol, Hypertension, SOB on Exertion, Stents Respiratory History: Reports: SOB, Other (See Below) Other Respiratory History: had influenza B in past Gastrointestinal History: Reports: Diverticulosis, GERD Other Gastrointestinal History: HX ulcer Genitourinary History: Reports: Chronic Renal Insuffiency, UTI, Recurrent Other Genitourinary History: freguent UTI TEST CLERK History: Reports: Other OB/BYN History: one miscarriage Musculoskeletal History: Reports: Arthritis, Osteoarthritis, Osteoporosis, Other (See Below) Other Musculoskeletal History: spinal stenosis, DJD, knee brace to left for arthritis Neurological History: Reports: Vertigo Psychiatric History: Reports: None Endocrine/Metabolic History: Reports: Obesity/BMI 30+, Osteopenia, Osteoporosis Hematologic History: Reports: Anemia, Iron Deficiency, Other (See Below) Other Hematologic History: neutropenia, microalbuminuria Immunologic History: Reports: None Oncologic (Cancer) History: Reports: None Dermatologic History: Reports: Benign Melanoma, Cellulitis, Other (See Below) Other Dermatologic History: rosacea - Infectious Disease History Infectious Disease History: Reports: Chicken Pox, Influenza, Measles, Mumps, Shingles - Past Surgical History Head Surgeries/Procedures: Reports: None HEENT Surgical History: Reports: Adenoidectomy, Naso-Sinus Surgery, Tonsillectomy Cardiovascular Surgical History: Reports: Coronary Artery Stent, Other (See Below) Respiratory Surgical History: Reports: None GI Surgical History: Reports: Cholecystectomy, Colonoscopy, EGD Female Surgical History: Reports: Breast Biopsy, Hysterectomy, Other (See Below) Dermatological Surgical History: Reports: Other (See Below) Social & Family History - Family History Family Medical History: Noncontributory HEENT: Reports: Cataract, Macular Degeneration Cardiac: Reports: Other (See Below) Other Cardiac Family History: leaky valve Respiratory: Reports: None GI: Reports: None : Reports: Other (See Below) Other Family History: mother had bladder infection OBGYN: Reports: Musculoskeletal: Reports: Arthritis, Osteoarthritis Neurological: Reports: Other (See Below) Other Neurological Family History: mother was anxious Psychiatric: Reports: None Endocrine/Metabolic: Reports: Osteoporosis Hematologic: Reports: Anemia Immunologic: Reports: None Dermatologic: Reports: None Oncologic: Reports: Colon, Prostate - Tobacco Use Smoking Status *Q: Never Smoker Used Tobacco, but Quit: No Second Hand Smoke Exposure: No - Caffeine Use Caffeine Use: Reports: None - Alcohol Use Days Per Week of Alcohol Use: 0 - Recreational Drug Use Recreational Drug Use: No Drug Use in Last 12 Months: No - Living Situation & Occupation Living situation: Reports: , Alone Occupation: Retired ED ROS GENERAL - Review of Systems Review Of Systems: ROS reveals no pertinent complaints other than HPI. ED EXAM, GENERAL - Physical Exam Exam: See Below Exam Limited By: No Limitations General Appearance: Alert, WD/WN, No Apparent Distress, Anxious Eye Exam: Bilateral Eye: Normal Inspection Ears: Normal External Exam, Hearing Grossly Normal Nose: Normal Inspection, Normal Mucosa, No Blood Throat/Mouth: Normal Inspection, Normal Lips, Normal Teeth, Normal Gums, Normal Oropharynx, Normal Voice, No Airway Compromise Head: Atraumatic, Normocephalic Neck: Normal Inspection, Supple, Non-Tender, Full Range of Motion Respiratory/Chest: No Respiratory Distress, Lungs Clear, Normal Breath Sounds, No Accessory Muscle Use, Chest Non-Tender Cardiovascular: Normal Peripheral Pulses, Regular Rate, Rhythm, No Edema, No Gallop, No JVD, No Murmur, No Rub, Extra Beats (occasional, corresponding with PVC's on awake overnight monitor) GI/Abdominal: Normal Bowel Sounds, Soft, Non-Tender, No Distention, No Abnormal Bruit (Female) Exam: Deferred Rectal (Female) Exam: Deferred Back Exam: Normal Inspection Extremities: Normal Inspection, Normal Range of Motion, Non-Tender, Normal Capillary Refill, No Pedal Edema Neurological: Alert, Oriented, CN II-XII Intact, Normal Cognition, No Motor/ Sensory Deficits Psychiatric: Anxious Skin Exam: Warm, Dry, Intact, Normal Color, No Rash EKG INTERPRETATION EKG Date: 11/01/17 Time: 12:39 Rhythm: Other (SR) Rate (Beats/Min): 95 [place]: Normal P-Wave: Present QRS: Other (PVCs, LVH w/secondary repol. abnl.) ST-T: Normal QT: Normal Comparison: No Change EKG Interpretation Comments: No acute ischemic changes. Course - Vital Signs Last Recorded V/S: Last Vital Signs Temp 36.8 C 11/01/17 14:18 Pulse 109 H 11/01/17 14:18 Resp 16 11/01/17 14:18 BP 116/65 11/01/17 14:18 Pulse Ox 100 11/01/17 14:18 - Orders/Labs/Meds Orders: Active Orders 24 hr Category Date Time Status EKG 12 Lead [EKG Documentation Completion] [RC] STAT Care 11/01/17 12:51 Active Peripheral IV Care [RC] . DIRECTED Care 11/01/17 13:00 Active Sodium Chloride 0.9% [Saline Flush] Med 11/01/17 13:00 Active 10 ml FLUSH ASDIRECTED PRN Peripheral IV Insertion Adult [OM.PC] Stat Oth 11/01/17 12:59 Ordered Medication Orders Sodium Chloride (Saline Flush) 10 ml FLUSH ASDIRECTED PRN PRN Reason: Keep Vein Open Labs: Laboratory Tests 11/01/17 11/01/17 11/01/17 Range/Units 13:15 13:15 13:15 WBC 5.8 (5.0-10.0) 10^3/uL RBC 4.04 L (4.2-5.4) 10^6/uL Hgb 11.9 L (12.0-16.0) g/dL Hct 36.2 L (37.0-47.0) % MCV 89.6 (80-100) fL MCH 29.5 (27.0-34.0) pg MCHC 32.9 L (33.0-35.0) g/dL Plt Count 219 (150-450) 10^3/uL Neut % (Auto) 44.0 (42.2-75.2) % Lymph % (Auto) 47.3 (20.5-50.1) % [place] % (Auto) 7.3 (2-8) % Eos % (Auto) 0.9 L (1.0-3.0) % Baso % (Auto) 0.5 (0.0-1.0) % Sodium 140 (135-145) mmol/L Potassium 3.5 L (3.6-5.0) mmol/L Chloride 102 (101-111) mmol/L Carbon Dioxide 27.0 (21.0-31.0) mmol/L Anion Gap 14.5 BUN 14 (7-18) mg/dL Creatinine 0.7 (0.6-1.3) mg/dL Est Cr Clr Drug Dosing 55.76 mL/min Estimated GFR (MDRD) > 60 BUN/Creatinine Ratio 20.00 Glucose 133 H (74-105) mg/dL Calcium 9.8 (8.4-10.2) mg/dl Magnesium 1.8 (1.8-2.5) mg/dL Total Bilirubin 0.8 (0.2-1.0) mg/dL AST 29 (10-42) IU/L ALT 27 (10-60) IU/L Alkaline Phosphatase 63 (42-121) IU/L Troponin I < 0.02 (0.00-0.02) ng/ml Total Protein 7.5 (6.7-8.2) g/dl Albumin 4.3 (3.2-5.5) g/dl Globulin 3.2 Albumin/Globulin Ratio 1.34 TSH, Ultra Sensitive 1.53 (0.45-5.33) uIu/mL Urine Color (YELLOW) Urine Appearance (CLEAR) Urine pH (5.0-9.0) Ur Specific [place] (1.005-1.030) Urine Protein (NEGATIVE) Urine Glucose (UA) (NEGATIVE) Urine Ketones (NEGATIVE) Urine Occult Blood (NEGATIVE) Urine Nitrite (NEGATIVE) Urine Bilirubin (NEGATIVE) Urine Urobilinogen (0.2-1.0) mg/dL Ur Leukocyte Esterase (NEGATIVE) Urine RBC /HPF Urine WBC (0-5/HPF) /HPF Ur Epithelial Cells /HPF Urine Bacteria (0-FEW/HPF) /HPF Urine Mucus /LPF 11/01/17 Range/Units 13:50 WBC (5.0-10.0) 10^3/uL RBC (4.2-5.4) 10^6/uL Hgb (12.0-16.0) g/dL Hct (37.0-47.0) % MCV (80-100) fL MCH (27.0-34.0) pg MCHC (33.0-35.0) g/dL Plt Count (150-450) 10^3/uL Neut % (Auto) (42.2-75.2) % Lymph % (Auto) (20.5-50.1) % [place] % (Auto) (2-8) % Eos % (Auto) (1.0-3.0) % Baso % (Auto) (0.0-1.0) % Sodium (135-145) mmol/L Potassium (3.6-5.0) mmol/L Chloride (101-111) mmol/L Carbon Dioxide (21.0-31.0) mmol/L Anion Gap BUN (7-18) mg/dL Creatinine (0.6-1.3) mg/dL Est Cr Clr Drug Dosing mL/min Estimated GFR (MDRD) BUN/Creatinine Ratio Glucose (74-105) mg/dL Calcium (8.4-10.2) mg/dl Magnesium (1.8-2.5) mg/dL Total Bilirubin (0.2-1.0) mg/dL AST (10-42) IU/L ALT (10-60) IU/L Alkaline Phosphatase (42-121) IU/L Troponin I (0.00-0.02) ng/ml Total Protein (6.7-8.2) g/dl Albumin (3.2-5.5) g/dl Globulin Albumin/Globulin Ratio TSH, Ultra Sensitive (0.45-5.33) uIu/mL Urine Color Yellow (YELLOW) Urine Appearance Slightly cloudy (CLEAR) Urine pH 6.0 (5.0-9.0) Ur Specific [place] 1.015 (1.005-1.030) Urine Protein Negative (NEGATIVE) Urine Glucose (UA) Negative (NEGATIVE) Urine Ketones Negative (NEGATIVE) Urine Occult Blood Negative (NEGATIVE) Urine Nitrite Negative (NEGATIVE) Urine Bilirubin Negative (NEGATIVE) Urine Urobilinogen 0.2 (0.2-1.0) mg/dL Ur Leukocyte Esterase Small H (NEGATIVE) Urine RBC 0-5 /HPF Urine WBC 0-5 (0-5/HPF) /HPF Ur Epithelial Cells Moderate H /HPF Urine Bacteria Few (0-FEW/HPF) /HPF Urine Mucus Rare /LPF Meds: Medications Generic Name Dose Route Start Last Admin Trade Name Freq PRN Reason Stop Dose Admin Sodium Chloride 10 ml 11/01/17 13:00 Saline Flush FLUSH ASDIRECTED PRN Keep Vein Open - Radiology Interpretation Free Text/Narrative:: CXR: no acute process per Rad. report. Departure - Departure Time of Disposition: 14:46 Disposition: Home, Self-Care 01 Condition: Good Clinical Impression: Palpitations Instructions: Palpitations Forms: ED Department Discharge Additional Instructions: No abnormal findings were found today. Your heart rate and blood pressure were not found to be in any abnormal or concerning range during your ER evaluation. You have occasional premature ventricular heart beats (PVCs) which are a normal benign finding and require no specific treatment. Follow up in clinic with Dr. Hammer in one to two days for recheck. - My Orders Last 24 Hours: My Active Orders 11/01/17 12:51 EKG 12 Lead [EKG Documentation Completion] [RC] STAT 11/01/17 12:59 Peripheral IV Insertion Adult [OM.PC] Stat 11/01/17 13:00 Peripheral IV Care [RC] . DIRECTED Sodium Chloride 0.9% [Saline Flush] 10 ml FLUSH ASDIRECTED PRN - Assessment/Plan Last 24 Hours: My Active Orders 11/01/17 12:51 EKG 12 Lead [EKG Documentation Completion] [RC] STAT 11/01/17 12:59 Peripheral IV Insertion Adult [OM.PC] Stat 11/01/17 13:00 Peripheral IV Care [RC] . DIRECTED Sodium Chloride 0.9% [Saline Flush] 10 ml FLUSH ASDIRECTED PRN
[2017-11-01] MEDS ORDERED: Sodium Chloride 0.9% 10 ML Syringe FLUSH PRN (13:00)
[2017-11-01 13:43] LABS: CHLORIDE,CL 102 mmol/L (101-111); SODIUM,NA 140 mmol/L (135-145)
--- NOTE | 2017-11-01 14:10 | CR ---
Clinical history: 82-year-old hypertensive female with rapid heart beat and "lightheadedness". Interpretation: No acute new cardiopulmonary abnormality identified in the interval since 29 October 2017. Cardiac silhouette without cephalization of vascular flow, signs of alveolar edema or dependent pleur al effusion. No lung mass, hilar lymphadenopathy or focal lobar pneumonia. No atelectasis/collapse. No pneumothorax.
[2017-11-01 14:55] VITALS: BP 105/70
--- NOTE | 2017-11-06 14:44 | EKG ---
11/01/2017 - CHRISTI RAMOS L - FINDINGS: This 12-lead EKG shows sinus tachycardia with a ventricular rate of 95. There are multifocal PVCs. No acute ST-segment or T-wave changes. [facility] /[id number]
== END 2017-11-01 15:12 | disposition home or self-care (01) ==
LOC: DL.ED 12:13
DX: R00.2 Palpitations (principal); I12.9 Hypertensive chronic kidney disease with stage 1 through stage 4 chronic kidney disease, or unspecified chronic kidney disease; N18.9 Chronic kidney disease, unspecified; E78.00 Pure hypercholesterolemia, unspecified; I25.10 Atherosclerotic heart disease of native coronary artery without angina pectoris; Z79.899 Other long term (current) drug therapy
CPT/HCPCS: 36415; 71045; 80053; 81001; 83735; 84443; 84484; 85025; 93005; 93010; 99285; J7050

== ENCOUNTER 2017-12-20 14:58 | Emergency (ER) | payer MEDICARE, OTHER ==
--- NOTE | 2017-12-20 16:06 | CR ---
Clinical history: 82-year-old female with left shoulder pain. Interpretation: AP portable chest film confirms hypertrophic arthritic changes of the dorsal spine. S light rotation. Normal cardiac silhouette without cephalization of flow, signs of alveolar edema or dependent pleural effusion. Left-sided aortic arch. No lung mass, hilar lymphadenopathy or focal lobar pneumonia. No pneumothorax or free subdiaphragmatic air.. CONCLUSION: No acute cardiopulmonary abnormality.
[2017-12-20 16:14] LABS: CHLORIDE,CL 102 mmol/L (101-111); SODIUM,NA 139 mmol/L (135-145)
[2017-12-20 19:01] VITALS: BP 131/54
--- NOTE | 2017-12-20 19:02 | EDM.PDOC ---
Scribed by Kim Neal 12/20/17 1901 for Rodney Rodriguez PA <Rodney Rodriguez - Last Filed: 12/20/17 19:02> ED HPI GENERAL MEDICAL PROBLEM - General Chief Complaint: Upper Extremity Injury/Pain Stated Complaint: LEFT SHOULDERPAIN/GOING DOWN [id number] Time Seen by Provider: 12/20/17 15:40 Source of Information: Reports: Patient, RN, RN Notes Reviewed History Limitations: Reports: No Limitations - History of Present Illness INITIAL COMMENTS - FREE TEXT/NARRATIVE: Patient presents to ER with left shoulder pain. This started yesterday afternoon. She took Tylenol and it got better. Today it got worse. 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 She was started on Zoloft yesterday and took her first dose today. She sees a co founder & ceo in [place]. 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 Verified 12/20/17 15:22 Jittery. sulfamethoxazole AdvReac Unknown Bone pain Verified 12/20/17 15:22 [From Bactrim] trimethoprim [From Bactrim] AdvReac Unknown Bone pain Verified 12/20/17 15:22 propoxyphene napsylate AdvReac Nausea and Verified 12/20/17 15:22 [From Darvocet-N] Vomiting Home Meds: Home Meds Atenolol [Tenormin] 50 mg PO DAILY 10/04/14 [History] Calcium Carb & Citrate/Vit D3 [Calcium + D3 ER Tablet] 1 tab PO DAILY 10/04/14 [ History] Cranberry 1,000 mg PO DAILY 10/04/14 [History] Fish Oil/[place]-3 Fatty Acids [Fish Oil] 1,000 mg PO BID 10/04/14 [History] Gluc/[place]-Msm#2/C/D3/Ranjan/Born [Dxwvoaooeq-Uhjgafhbjna-ZGU] 1,500 mg PO TID 04/12 [History] Pantoprazole Sodium [Protonix] 40 mg PO DAILY 10/04/14 [History] Simvastatin [Zocor] 40 mg PO DAILY 10/04/14 [History] amLODIPine [Norvasc] 5 mg PO DAILY 10/04/14 [History] Cholecalciferol (Vitamin D3) [Vitamin D3] 1,000 unit PO DAILY 12/25/14 [History] Clotrimazole/Betamethasone Dip [Lotrisone Cream] 1 gm TOP BID PRN 12/25/14 [ History] Fluticasone Propionate [Flonase] 2 spray NASBOTH DAILY PRN 12/25/14 [History] Ubidecarenone [Coenzyme Q10] 100 mg PO DAILY 12/25/14 [History] oxyCODONE HCl/Acetaminophen [Endocet 5-325 Tablet] 1 tab PO DAILY PRN 12/25/14 [ History] Acetaminophen [Tylenol Extra Strength] 2 tab PO BID 12/26/14 [History] Sucralfate 1 gm PO QID 09/20/16 [History] Codeine/Promethazine [Phenergan with Codeine] 5 ml PO DAILY PRN 03/09/17 [ History] Furosemide 20 mg PO DAILY PRN 03/09/17 [History] Lisinopril 2.5 mg PO DAILY 03/09/17 [History] Multivitamin [Multiple Vitamins] 1 each PO DAILY 03/09/17 [History] Nitroglycerin [Nitrostat] 0.4 mg SL Q5M PRN 03/09/17 [History] Ondansetron HCl [Zofran] 4 mg PO Q6HR PRN 03/09/17 [History] Patient's Own Medication [Ptom] 26 mcg VAG .TWICE A WEEK 03/09/17 [History] Cephalexin [IJD: Cephalexin] 500 mg PO Q6HR 9 Days capsule 03/11/17 [Rx] Meclizine [Antivert] 25 mg PO Q8H PRN #10 tablet 03/11/17 [Rx] Past Medical History HEENT History: Reports: Macular Degeneration Cardiovascular History: Reports: CAD, High Cholesterol, Hypertension, SOB on Exertion, Stents (in 2007 and 2009.) Respiratory History: Reports: SOB, Other (See Below) Other Respiratory History: had influenza B in past Gastrointestinal History: Reports: Diverticulosis, GERD Other Gastrointestinal History: HX ulcer Genitourinary History: Reports: Chronic Renal Insuffiency, UTI, Recurrent Other Genitourinary History: freguent UTI 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 OB/BYN History: one miscarriage Musculoskeletal History: Reports: Arthritis, Osteoarthritis, Osteoporosis, Other (See Below) Other Musculoskeletal History: spinal stenosis, DJD, knee brace to left for arthritis Neurological History: Reports: Vertigo Psychiatric History: Reports: None Endocrine/Metabolic History: Reports: Obesity/BMI 30+, Osteopenia, Osteoporosis Hematologic History: Reports: Anemia, Iron Deficiency, Other (See Below) Other Hematologic History: neutropenia, microalbuminuria Immunologic History: Reports: None Oncologic (Cancer) History: Reports: None Dermatologic History: Reports: Benign Melanoma, Cellulitis, Other (See Below) Other Dermatologic History: rosacea - Infectious Disease History Infectious Disease History: Reports: Chicken Pox, Influenza, Measles, Mumps, Shingles - Past Surgical History Head Surgeries/Procedures: Reports: None HEENT Surgical History: Reports: Adenoidectomy, Naso-Sinus Surgery, Tonsillectomy Cardiovascular Surgical History: Reports: Coronary Artery Stent, Other (See Below) Respiratory Surgical History: Reports: None GI Surgical History: Reports: Cholecystectomy, Colonoscopy, EGD Female Surgical History: Reports: Breast Biopsy, Hysterectomy Social & Family History - Family History Family Medical History: Noncontributory HEENT: Reports: Cataract, Macular Degeneration Cardiac: Reports: Other (See Below) Other Cardiac Family History: leaky valve Respiratory: Reports: None GI: Reports: None : Reports: Other (See Below) Other Family History: mother had bladder infection OBGYN: Reports: Musculoskeletal: Reports: Arthritis, Osteoarthritis Neurological: Reports: Other (See Below) Other Neurological Family History: mother was anxious Psychiatric: Reports: None Endocrine/Metabolic: Reports: Osteoporosis Hematologic: Reports: Anemia Immunologic: Reports: None Dermatologic: Reports: None Oncologic: Reports: Colon, Prostate - Tobacco Use Smoking Status *Q: Never Smoker Used Tobacco, but Quit: No Second Hand Smoke Exposure: No - Caffeine Use Caffeine Use: Reports: None - Alcohol Use Days Per Week of Alcohol Use: 0 - Recreational Drug Use Recreational Drug Use: No Drug Use in Last 12 Months: No - Living Situation & Occupation Living situation: Reports: , Alone Occupation: Retired Review of Systems - Review of Systems Review Of Systems: ROS reveals no pertinent complaints other than HPI. ED EXAM, GENERAL - Physical Exam Exam: See Below Exam Limited By: No Limitations General Appearance: Alert, WD/WN, No Apparent Distress Eye Exam: Bilateral Eye: Normal Inspection Ears: Normal External Exam, Normal Canal, Hearing Grossly Normal, Normal TMs Nose: Normal Inspection, Normal Mucosa, No Blood Throat/Mouth: Normal Inspection, Normal Lips, Normal Teeth, Normal Gums, Normal Oropharynx, Normal Voice, No Airway Compromise Head: Atraumatic, Normocephalic Neck: Other (left neck stiffness) Respiratory/Chest: No Respiratory Distress, Lungs Clear, Normal Breath Sounds, No Accessory Muscle Use, Chest Non-Tender Cardiovascular: Normal Peripheral Pulses, Regular Rate, Rhythm, No Edema, No Gallop, No JVD, No Murmur, No Rub GI/Abdominal: Normal Bowel Sounds, Soft, Non-Tender, No Organomegaly, No Distention, No Abnormal Bruit, No Mass (Female) Exam: Deferred Rectal (Female) Exam: Deferred Back Exam: Normal Inspection, Full Range of Motion, NT Extremities: Other (left arm stiffness) Neurological: Alert, Oriented, CN II-XII Intact, Normal Cognition, Normal Gait, Normal Reflexes, No Motor/Sensory Deficits Psychiatric: Normal Affect, Normal Mood Skin Exam: Warm, Dry, Intact, Normal Color, No Rash Lymphatic: No Adenopathy Course - Vital Signs Last Recorded V/S: Last Vital Signs Temp 97.5 F 12/20/17 15:12 Pulse 68 12/20/17 19:01 Resp 20 12/20/17 19:01 BP 131/54 L 12/20/17 19:01 Pulse Ox 95 12/20/17 19:01 - Orders/Labs/Meds Orders: Active Orders 24 hr Category Date Time Status EKG Documentation Completion [RC] ROUTINE Care 12/20/17 19:44 Active EKG Documentation Completion [RC] URGENT Care 12/20/17 15:32 Active Labs: Laboratory Tests 12/20/17 12/20/17 12/20/17 Range/Units 15:44 15:44 19:44 WBC 5.6 (5.0-10.0) 10^3/uL RBC 3.93 L (4.2-5.4) 10^6/uL Hgb 11.6 L (12.0-16.0) g/dL Hct 35.5 L (37.0-47.0) % MCV 90.3 (80-100) fL MCH 29.5 (27.0-34.0) pg MCHC 32.7 L (33.0-35.0) g/dL Plt Count 199 (150-450) 10^3/uL Neut % (Auto) 35.3 L (42.2-75.2) % Lymph % (Auto) 54.7 H (20.5-50.1) % [place] % (Auto) 8.2 H (2-8) % Eos % (Auto) 1.3 (1.0-3.0) % Baso % (Auto) 0.5 (0.0-1.0) % Sodium 139 (135-145) mmol/L Potassium 3.8 (3.6-5.0) mmol/L Chloride 102 (101-111) mmol/L Carbon Dioxide 28.0 (21.0-31.0) mmol/L Anion Gap 12.8 BUN 18 (7-18) mg/dL Creatinine 0.9 (0.6-1.3) mg/dL Est Cr Clr Drug Dosing 43.37 mL/min Estimated GFR (MDRD) 60 BUN/Creatinine Ratio 20.00 Glucose 113 H (74-105) mg/dL Calcium 9.4 (8.4-10.2) mg/dl Total Bilirubin 0.6 (0.2-1.0) mg/dL AST 26 (10-42) IU/L ALT 25 (10-60) IU/L Alkaline Phosphatase 59 (42-121) IU/L Troponin I < 0.02 < 0.02 (0.00-0.02) ng/ml Total Protein 7.0 (6.7-8.2) g/dl Albumin 4.0 (3.2-5.5) g/dl Globulin 3.0 Albumin/Globulin Ratio 1.33 Departure - Departure Disposition: Home, Self-Care 01 Clinical Impression: Non-cardiac chest pain, Anxiety - Discharge Information Instructions: Nonspecific Chest Pain, Ujer-ar-Ghev Referrals: Krystal Hammer MD [Primary Care Provider] - Forms: ED Department Discharge Additional Instructions: follow up in clinic this week with primary provider rest light activity continue home medications <Bere Yost - Last Filed: 12/21/17 05:02> Course - Re-Assessments/Exams Free Text/Narrative Re-Assessment/Exam: 12/21/17 05:01 Follow up troponin negative, Studies reviewed with patient and daughter. Plan, discharge home and she is to follow up with her primary care provider.. Departure - Departure Time of Disposition: 20:47 Condition: Good I have read and agree with the documentation that has been completed regarding this visit. By signing this record, I attest that the documentation was completed in my physical presence and is an accurate record of the encounter.
== END 2017-12-20 21:20 | disposition home or self-care (01) ==
LOC: DL.ED 14:58
DX: R07.89 Other chest pain (principal); F41.9 Anxiety disorder, unspecified; E78.00 Pure hypercholesterolemia, unspecified; I10 Essential (primary) hypertension; K21.9 Gastro-esophageal reflux disease without esophagitis; E66.9 Obesity, unspecified; Z88.8 Allergy status to other drugs, medicaments and biological substances; Z88.2 Allergy status to sulfonamides; Z79.899 Other long term (current) drug therapy
CPT/HCPCS: 36415; 71045; 80053; 84484; 85025; 93005; 93010; 99284

== ENCOUNTER 2018-03-14 10:47 | Emergency (ER) | payer MEDICARE, OTHER ==
--- NOTE | 2018-03-14 11:12 | EDM.PDOC ---
ED HPI GENERAL MEDICAL PROBLEM - General Chief Complaint: Respiratory Problem Stated Complaint: SOB, BY AMBULANCE Time Seen by Provider: 03/14/18 11:00 Source of Information: Reports: Patient, EMS, EMS Notes Reviewed, RN, RN Notes Reviewed History Limitations: Reports: No Limitations - History of Present Illness INITIAL COMMENTS - FREE TEXT/NARRATIVE: Pt presents to the ER per [facility] with c/o near syncope episode. She states she was working at the [employer] when she felt a "warm vera" come over her body. She states she felt somewhat weak and faint, but these symptoms resolved. Patient denies chest pain now or through the episode. Patient states she did have some SOB with the episode, but not at this time. Patient denies recent fever, chills, N/V/D. Patient states she is feeling fine at this time except a mild headache. Onset: Today, Sudden Headache Pain Score (Numeric/FACES): 2 - Related Data Allergies Allergy/AdvReac Type Severity Reaction Status Date / Time atorvastatin [From Lipitor] Allergy Mild Muscle Verified 12/20/17 15:22 Aches aspirin Allergy tongue Verified 12/20/17 15:22 swelling guaifenesin [From Robitussin] Allergy Cannot Verified 12/20/17 15:22 Remember metronidazole Allergy Cannot Verified 12/20/17 15:22 Remember pravastatin Allergy Muscle Verified 12/20/17 15:22 Aches rosuvastatin Allergy Muscle Verified 12/20/17 15:22 Aches paroxetine HCl [From Paxil] AdvReac Unknown Nausea. Verified 12/20/17 15:22 Jittery. sulfamethoxazole AdvReac Unknown Bone pain Verified 12/20/17 15:22 [From Bactrim] trimethoprim [From Bactrim] AdvReac Unknown Bone pain Verified 12/20/17 15:22 propoxyphene napsylate AdvReac Nausea and Verified 12/20/17 15:22 [From Darvocet-N] Vomiting Home Meds: Home Meds Calcium Carb & Citrate/Vit D3 [Calcium + D3 ER Tablet] 1 tab PO DAILY 10/04/14 [ History] Cranberry 1,000 mg PO DAILY 10/04/14 [History] Fish Oil/[place]-3 Fatty Acids [Fish Oil] 1,000 mg PO BID 10/04/14 [History] Gluc/[place]-Msm#2/C/D3/Ranjan/Born [Htmhplgkob-Nsjrdyircxp-LCO] 1,500 mg PO TID 04/12 [History] Pantoprazole Sodium [Protonix] 40 mg PO DAILY 10/04/14 [History] Simvastatin [Zocor] 40 mg PO DAILY 10/04/14 [History] amLODIPine [Norvasc] 2.5 mg PO DAILY 10/04/14 [History] Cholecalciferol (Vitamin D3) [Vitamin D3] 1,000 unit PO DAILY 12/25/14 [History] Clotrimazole/Betamethasone Dip [Lotrisone Cream] 1 gm TOP BID PRN 12/25/14 [ History] Fluticasone Propionate [Flonase] 2 spray NASBOTH DAILY PRN 12/25/14 [History] Ubidecarenone [Coenzyme Q10] 100 mg PO DAILY 12/25/14 [History] oxyCODONE HCl/Acetaminophen [Endocet 5-325 Tablet] 1 tab PO DAILY PRN 12/25/14 [ History] Acetaminophen [Tylenol Extra Strength] 2 tab PO BID 12/26/14 [History] Sucralfate 1 gm PO QID 09/20/16 [History] Codeine/Promethazine [Phenergan with Codeine] 5 ml PO DAILY PRN 03/09/17 [ History] Furosemide 20 mg PO DAILY PRN 03/09/17 [History] Lisinopril 2.5 mg PO DAILY 03/09/17 [History] Multivitamin [Multiple Vitamins] 1 each PO DAILY 03/09/17 [History] Nitroglycerin [Nitrostat] 0.4 mg SL Q5M PRN 03/09/17 [History] Ondansetron HCl [Zofran] 4 mg PO Q6HR PRN 03/09/17 [History] Patient's Own Medication [Ptom] 26 mcg VAG .TWICE A WEEK 03/09/17 [History] Meclizine [Antivert] 25 mg PO Q8H PRN #10 tablet 03/11/17 [Rx] Metoprolol Tartrate 50 mg PO BID 03/14/18 [History] Past Medical History HEENT History: Reports: Macular Degeneration Cardiovascular History: Reports: CAD, High Cholesterol, Hypertension, SOB on Exertion, Stents (in 2007 and 2009.) Respiratory History: Reports: SOB, Other (See Below) Other Respiratory History: had influenza B in past Gastrointestinal History: Reports: Diverticulosis, GERD Other Gastrointestinal History: HX ulcer Genitourinary History: Reports: Chronic Renal Insuffiency, UTI, Recurrent Other Genitourinary History: freguent UTI 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 OB/BYN History: one miscarriage Musculoskeletal History: Reports: Arthritis, Osteoarthritis, Osteoporosis, Other (See Below) Other Musculoskeletal History: spinal stenosis, DJD, knee brace to left for arthritis Neurological History: Reports: Vertigo Psychiatric History: Reports: None Endocrine/Metabolic History: Reports: Obesity/BMI 30+, Osteopenia, Osteoporosis Hematologic History: Reports: Anemia, Iron Deficiency, Other (See Below) Other Hematologic History: neutropenia, microalbuminuria Immunologic History: Reports: None Oncologic (Cancer) History: Reports: None Dermatologic History: Reports: Benign Melanoma, Cellulitis, Other (See Below) Other Dermatologic History: rosacea - Infectious Disease History Infectious Disease History: Reports: Chicken Pox, Influenza, Measles, Mumps, Shingles - Past Surgical History Head Surgeries/Procedures: Reports: None HEENT Surgical History: Reports: Adenoidectomy, Naso-Sinus Surgery, Tonsillectomy Cardiovascular Surgical History: Reports: Coronary Artery Stent, Other (See Below) Respiratory Surgical History: Reports: None GI Surgical History: Reports: Cholecystectomy, Colonoscopy, EGD Female Surgical History: Reports: Breast Biopsy, Hysterectomy Social & Family History - Family History Family Medical History: Noncontributory HEENT: Reports: Cataract, Macular Degeneration Cardiac: Reports: Other (See Below) Other Cardiac Family History: leaky valve Respiratory: Reports: None GI: Reports: None : Reports: Other (See Below) Other Family History: mother had bladder infection OBGYN: Reports: Musculoskeletal: Reports: Arthritis, Osteoarthritis Neurological: Reports: Other (See Below) Other Neurological Family History: mother was anxious Psychiatric: Reports: None Endocrine/Metabolic: Reports: Osteoporosis Hematologic: Reports: Anemia Immunologic: Reports: None Dermatologic: Reports: None Oncologic: Reports: Colon, Prostate - Caffeine Use Caffeine Use: Reports: None - Living Situation & Occupation Living situation: Reports: , Alone Occupation: Retired ED ROS GENERAL - Review of Systems Review Of Systems: ROS reveals no pertinent complaints other than HPI. ED EXAM, GENERAL - Physical Exam Exam: See Below Exam Limited By: No Limitations General Appearance: Alert, WD/WN, No Apparent Distress Eye Exam: Bilateral Eye: EOMI, Normal Inspection, PERRL (3 brisk) Ears: Normal External Exam, Hearing Grossly Normal Nose: Normal Inspection, Normal Mucosa, No Blood Throat/Mouth: Normal Inspection, Normal Lips, Normal Teeth, Normal Gums, Normal Oropharynx, Normal Voice, No Airway Compromise Head: Atraumatic, Normocephalic Neck: Normal Inspection, Supple, Non-Tender, Full Range of Motion Respiratory/Chest: No Respiratory Distress, Lungs Clear, No Accessory Muscle Use , Chest Non-Tender, Decreased Breath Sounds Cardiovascular: Normal Peripheral Pulses, Regular Rate, Rhythm, No Edema, No Gallop, No JVD, No Murmur, No Rub Peripheral Pulses: 2+: Radial (L), Radial (R), Dorsalis Pedis (L), Dorsalis Pedis (R) GI/Abdominal: Normal Bowel Sounds, Soft, Non-Tender, No Organomegaly, No Distention, No Abnormal Bruit, No Mass (Female) Exam: Deferred Rectal (Female) Exam: Deferred Back Exam: Normal Inspection, Full Range of Motion, NT Extremities: Normal Inspection, Normal Range of Motion, Non-Tender, Normal Capillary Refill, No Pedal Edema Neurological: Alert, Oriented, CN II-XII Intact, Normal Cognition, Normal Gait, Normal Reflexes, No Motor/Sensory Deficits Psychiatric: Normal Affect, Normal Mood Skin Exam: Warm, Dry, Intact, Normal Color, No Rash Lymphatic: No Adenopathy EKG INTERPRETATION EKG Date: 03/14/18 Time: 11:12 Rhythm: NSR Rate (Beats/Min): 64 [place]: Normal P-Wave: Present QRS: Normal ST-T: Normal QT: Normal Comparison: No Change Course - Vital Signs Last Recorded V/S: Last Vital Signs Temp 98.2 F 03/14/18 10:53 Pulse 62 03/14/18 13:38 Resp 13 03/14/18 13:38 BP 167/75 H 03/14/18 13:38 Pulse Ox 98 03/14/18 13:38 - Orders/Labs/Meds Orders: Active Orders 24 hr Category Date Time Status EKG Documentation Completion [RC] STAT Care 03/14/18 11:08 Active UA W/MICROSCOPIC [URIN] Stat Lab 03/14/18 12:10 Ordered Labs: Laboratory Tests 03/14/18 03/14/18 03/14/18 Range/Units 11:20 11:20 11:20 WBC 5.9 (5.0-10.0) 10^3/uL RBC 3.91 L (4.2-5.4) 10^6/uL Hgb 11.6 L (12.0-16.0) g/dL Hct 35.5 L (37.0-47.0) % MCV 90.8 (80-100) fL MCH 29.7 (27.0-34.0) pg MCHC 32.7 L (33.0-35.0) g/dL Plt Count 207 (150-450) 10^3/uL Neut % (Auto) 47.7 (42.2-75.2) % Lymph % (Auto) 40.4 (20.5-50.1) % [place] % (Auto) 8.5 H (2-8) % Eos % (Auto) 3.1 H (1.0-3.0) % Baso % (Auto) 0.3 (0.0-1.0) % PT 10.1 (9.0-12.0) SEC INR 1.0 (0.9-1.2) Sodium 140 (135-145) mmol/L Potassium 4.3 (3.6-5.0) mmol/L Chloride 102 (101-111) mmol/L Carbon Dioxide 31.0 (21.0-31.0) mmol/L Anion Gap 11.3 BUN 15 (7-18) mg/dL Creatinine 0.8 (0.6-1.3) mg/dL Est Cr Clr Drug Dosing 49.88 mL/min Estimated GFR (MDRD) > 60 BUN/Creatinine Ratio 18.75 Glucose 107 H (74-105) mg/dL Calcium 9.9 (8.4-10.2) mg/dl Total Bilirubin 0.6 (0.2-1.0) mg/dL AST 23 (10-42) IU/L ALT 18 (10-60) IU/L Alkaline Phosphatase 69 (42-121) IU/L Troponin I < 0.02 (0.00-0.02) ng/ml Total Protein 7.4 (6.7-8.2) g/dl Albumin 4.1 (3.2-5.5) g/dl Globulin 3.3 Albumin/Globulin Ratio 1.24 TSH, Ultra Sensitive (0.45-5.33) uIu/mL Urine Color (YELLOW) Urine Appearance (CLEAR) Urine pH (5.0-9.0) Ur Specific [place] (1.005-1.030) Urine Protein (NEGATIVE) Urine Glucose (UA) (NEGATIVE) Urine Ketones (NEGATIVE) Urine Occult Blood (NEGATIVE) Urine Nitrite (NEGATIVE) Urine Bilirubin (NEGATIVE) Urine Urobilinogen (0.2-1.0) mg/dL Ur Leukocyte Esterase (NEGATIVE) Urine RBC /HPF Urine WBC (0-5/HPF) /HPF Ur Epithelial Cells /HPF Urine Bacteria (0-FEW/HPF) /HPF 03/14/18 03/14/18 Range/Units 11:20 12:10 WBC (5.0-10.0) 10^3/uL RBC (4.2-5.4) 10^6/uL Hgb (12.0-16.0) g/dL Hct (37.0-47.0) % MCV (80-100) fL MCH (27.0-34.0) pg MCHC (33.0-35.0) g/dL Plt Count (150-450) 10^3/uL Neut % (Auto) (42.2-75.2) % Lymph % (Auto) (20.5-50.1) % [place] % (Auto) (2-8) % Eos % (Auto) (1.0-3.0) % Baso % (Auto) (0.0-1.0) % PT (9.0-12.0) SEC INR (0.9-1.2) Sodium (135-145) mmol/L Potassium (3.6-5.0) mmol/L Chloride (101-111) mmol/L Carbon Dioxide (21.0-31.0) mmol/L Anion Gap BUN (7-18) mg/dL Creatinine (0.6-1.3) mg/dL Est Cr Clr Drug Dosing mL/min Estimated GFR (MDRD) BUN/Creatinine Ratio Glucose (74-105) mg/dL Calcium (8.4-10.2) mg/dl Total Bilirubin (0.2-1.0) mg/dL AST (10-42) IU/L ALT (10-60) IU/L Alkaline Phosphatase (42-121) IU/L Troponin I (0.00-0.02) ng/ml Total Protein (6.7-8.2) g/dl Albumin (3.2-5.5) g/dl Globulin Albumin/Globulin Ratio TSH, Ultra Sensitive 1.96 (0.45-5.33) uIu/mL Urine Color Yellow (YELLOW) Urine Appearance Clear (CLEAR) Urine pH 7.0 (5.0-9.0) Ur Specific [place] 1.015 (1.005-1.030) Urine Protein Negative (NEGATIVE) Urine Glucose (UA) Negative (NEGATIVE) Urine Ketones Negative (NEGATIVE) Urine Occult Blood Negative (NEGATIVE) Urine Nitrite Negative (NEGATIVE) Urine Bilirubin Negative (NEGATIVE) Urine Urobilinogen 0.2 (0.2-1.0) mg/dL Ur Leukocyte Esterase Small H (NEGATIVE) Urine RBC 0-5 /HPF Urine WBC 5-10 H (0-5/HPF) /HPF Ur Epithelial Cells Rare /HPF Urine Bacteria Rare (0-FEW/HPF) /HPF Meds: Medications Discontinued Medications Generic Name Dose Route Start Last Admin Trade Name Freq PRN Reason Stop Dose Admin Acetaminophen 650 mg 03/14/18 13:53 Tylenol PO 03/14/18 13:54 NOW ONE - Radiology Interpretation Free Text/Narrative:: Chest xray: No acute findings Head CT: Right maxillary inflammation (sinusitis). Generalized atrophy. Microvascular ischemic disease both cerebral hemispheres. Lacunar infarct basal ganglia on the right. No sign of intracranial mass or acute bleed. See rad report Departure - Departure Time of Disposition: 13:54 Disposition: Home, Self-Care 01 Condition: Fair Clinical Impression: Subcortical microvascular ischemic occlusive disease, Right-sided lacunar infarction Sinusitis Qualifiers: Sinusitis location: maxillary Chronicity: acute Recurrence: non-recurrent Qualified Code(s): J01.00 - Acute maxillary sinusitis, unspecified - Discharge Information Instructions: Stroke Prevention, Whis-jf-Lglk, Sinusitis, Adult, Kvla-uw-Onvl, Ischemic Stroke, [id number] Referrals: Krystal Hammer MD [Primary Care Provider] - Forms: ED Department Discharge Additional Instructions: RX: Augmentin Follow up with Dr. Hammer the end of this week or beginning of next week. Return to the ER with any further symptoms. - My Orders Last 24 Hours: My Active Orders 03/14/18 11:08 EKG Documentation Completion [RC] STAT 03/14/18 12:10 UA W/MICROSCOPIC [URIN] Stat - Assessment/Plan Last 24 Hours: My Active Orders 03/14/18 11:08 EKG Documentation Completion [RC] STAT 03/14/18 12:10 UA W/MICROSCOPIC [URIN] Stat
[2018-03-14 11:53] LABS: CHLORIDE,CL 102 mmol/L (101-111); SODIUM,NA 140 mmol/L (135-145)
--- NOTE | 2018-03-14 12:27 | CR ---
Clinical history: 83-year-old female chest pain Interpretation: No acute new cardiopulmonary abnormality since 20 December 2017 exam. Upright AP portable chest film confirms reasonable expiratory effort with normal cardiac silhouette. No cephalization of vascular flow, new signs of alveolar edema or dependent effusion. No new lung mass, hilar lymphadenopathy or focal lobar pneumonia. No atelectasis/collapse. No pneumothorax.
--- NOTE | 2018-03-14 12:51 | CT ---
Clinical history: 83 year-old hypertensive 205 pound female "recent near syncopal episode". Rule out intracranial abnormality. No previous CT or MRI exams of the head immediately available at this [facility]. Scan technique: Volume acquisition of data emergency unenhanced CT scan of the head and brain obtaine d while the patient was lying supine on the Siemens multislice scanner [facility]. All data archived in the PACS system for storage and study (bone/brain windows). Interpretation: Abnormal. 1. Uniformly thick bony calvarium without sign of pathologic skeletal lesion, skull fracture, underly ing brain contusion or epidural/subdural hematoma. No supratentorial or posterior fossa mass lesion. 2. Symmetric pneumatization of the paranasal and mastoid sinuses (exception mucoperiosteal inflammati on right maxillary antrum). 3. Severe but symmetric cerebral cortical atrophy with underlying mirror-image prominence of ventricu lar system (apparent old infarct and encephalomalacia left temporal parietal region left cerebral hem isphere). No hydrocephalus. 4. Scattered microvascular multi-infarct ischemic lesions periventricular white matter both hemispher es and asymmetric large lacunar infarct (axial slice #17) putamen, basal ganglia, on the right. 5. No sign of acute intracerebral/intraventricular/subarachnoid bleed. Midline pineal and symmetric c horoid plexus Ca++. 6. Mild cerebellar atrophy. Brainstem unremarkable. CONCLUSION: Right maxillary inflammation (sinusitis). Generalized atrophy. Microvascular ischemic dis ease both cerebral hemispheres. Lacunar infarct basal ganglia on the right. No sign of intracranial m ass or acute bleed.
[2018-03-14] MEDS ORDERED: Acetaminophen 325 MG Tab PO ONE (13:53)
[2018-03-14 14:14] VITALS: BP 167/62
== END 2018-03-14 14:32 | disposition home or self-care (01) ==
LOC: DL.ED 10:47
DX: I67.82 Cerebral ischemia (principal); J01.00 Acute maxillary sinusitis, unspecified; I25.10 Atherosclerotic heart disease of native coronary artery without angina pectoris; E78.00 Pure hypercholesterolemia, unspecified; K21.9 Gastro-esophageal reflux disease without esophagitis; I12.9 Hypertensive chronic kidney disease with stage 1 through stage 4 chronic kidney disease, or unspecified chronic kidney disease; N18.9 Chronic kidney disease, unspecified; E66.9 Obesity, unspecified; D50.9 Iron deficiency anemia, unspecified; Z88.8 Allergy status to other drugs, medicaments and biological substances; Z87.440 Personal history of urinary (tract) infections; Z88.6 Allergy status to analgesic agent; Z88.1 Allergy status to other antibiotic agents; Z79.899 Other long term (current) drug therapy; Z95.5 Presence of coronary angioplasty implant and graft; Z68.33 Body mass index [BMI] 33.0-33.9, adult
CPT/HCPCS: 36415; 70450; 71045; 80053; 81001; 84443; 84484; 85025; 85610; 93005; 93010; 99285; A9270-GY

== ENCOUNTER 2021-01-12 04:18 | Emergency (ER) | payer MEDICARE, OTHER ==
[2021-01-12 05:11] LABS: ANION GAP 14.1 mEq/L (7-13); CHLORIDE,CL 104 mmol/L (98-107); SODIUM,NA 144 mmol/L (136-145)
[2021-01-12 05:16] VITALS: BP 143/59; PULSE 63
--- NOTE | 2021-01-12 05:38 | CT ---
PROCEDURE INFORMATION: Exam: CT Head Without Contrast Exam date and time: 01/12/2021 4:49 AM Age: 85 years old Clinical indication: Other: Headache , HTN TECHNIQUE: Imaging protocol: Computed tomography of the head without contrast. Radiation optimization: All CT scans at this facility use at least one of these dose optimization techniques: automated exposure control; mA and/or kV adjustment per patient size (includes targeted exams where dose is matched to clinical indication); or iterative reconstruction. COMPARISON: CT Head wo Cont 03/14/2018 12:16 PM FINDINGS: Brain: There is moderate diffuse cerebral atrophy present, consistent with this patient's age. Stable right lacunar infarct. Cerebral ventricles: No ventriculomegaly. Bones/joints: Unremarkable. No acute fracture. Paranasal sinuses: Visualized sinuses are unremarkable. No fluid levels. Mastoid air cells: Visualized mastoid air cells are well aerated. Soft tissues: Unremarkable. IMPRESSION: 1. No acute intracranial abnormality. 2. Chronic changes are stable.
--- NOTE | 2021-01-12 05:57 | EDM.PDOC ---
ED HPI GENERAL MEDICAL PROBLEM - General Chief Complaint: Cardiovascular Problem Stated Complaint: AMBULANCE Time Seen by Provider: 01/12/21 04:25 Source of Information: Reports: Patient, RN History Limitations: Reports: No Limitations - History of Present Illness INITIAL COMMENTS - FREE TEXT/NARRATIVE: ED with c/o high blood pressure since yesterday. Was seen in clinic and [facility] welch marycarmenaeyesenia, has not slept, been awake taking BP every 30-60 minutes and BP still up and headache . Routine tylenol yesterday. Nothing during night. No blurred vision, No weakness. Admits ansious as lives alone. Head Pain Score (Numeric/FACES): 5 - Related Data Allergies Allergy/AdvReac Type Severity Reaction Status Date / Time atorvastatin [From Lipitor] Allergy Mild Muscle Verified 12/20/17 15:22 Aches aspirin Allergy tongue Verified 12/20/17 15:22 swelling guaifenesin [From Robitussin] Allergy Cannot Verified 12/20/17 15:22 Remember metronidazole Allergy Cannot Verified 12/20/17 15:22 Remember pravastatin Allergy Muscle Verified 12/20/17 15:22 Aches rosuvastatin Allergy Muscle Verified 12/20/17 15:22 Aches paroxetine HCl [From Paxil] AdvReac Unknown Nausea. Verified 12/20/17 15:22 Jittery. sulfamethoxazole AdvReac Unknown Bone pain Verified 12/20/17 15:22 [From Bactrim] trimethoprim [From Bactrim] AdvReac Unknown Bone pain Verified 12/20/17 15:22 propoxyphene napsylate AdvReac Nausea and Verified 12/20/17 15:22 [From Darvocet-N] Vomiting Home Meds: Home Meds Calcium Carb, Citrate/Vit D3 [Calcium + D3 ER Tablet] 1 tab PO DAILY 10/04/14 [History] Cranberry 1,000 mg PO DAILY 10/04/14 [History] Fish Oil/[place]-3 Fatty Acids [Fish Oil] 1,000 mg PO BID 10/04/14 [History] Glucosam/Chond-MSM 2/C/D3/Ranjan [Xoqpxfunbn-Uffjlvcwafc-YZM] 1,500 mg PO TID 10/04/14 [History] Pantoprazole Sodium [Protonix] 40 mg PO DAILY 10/04/14 [History] Simvastatin [Zocor] 40 mg PO DAILY 10/04/14 [History] amLODIPine [Norvasc] 2.5 mg PO DAILY 10/04/14 [History] Cholecalciferol (Vitamin D3) [Vitamin D3] 1,000 unit PO DAILY 12/25/14 [History] Clotrimazole/Betamethasone Dip [Lotrisone Cream] 1 gm TOP BID PRN 12/25/14 [History] Fluticasone Propionate [Flonase] 2 spray NASBOTH DAILY PRN 12/25/14 [History] Ubidecarenone [Coenzyme Q10] 100 mg PO DAILY 12/25/14 [History] oxyCODONE HCl/Acetaminophen [Endocet 5-325 Tablet] 1 tab PO DAILY PRN 12/25/14 [History] Acetaminophen [Tylenol Extra Strength] 2 tab PO BID 12/26/14 [History] Sucralfate 1 gm PO QID 09/20/16 [History] Codeine/Promethazine [Phenergan with Codeine] 5 ml PO DAILY PRN 03/09/17 [History] Furosemide 20 mg PO DAILY PRN 03/09/17 [History] Lisinopril 2.5 mg PO DAILY 03/09/17 [History] Multivitamin [Multiple Vitamins] 1 each PO DAILY 03/09/17 [History] Nitroglycerin [Nitrostat] 0.4 mg SL Q5M PRN 03/09/17 [History] Patient's Own Medication [Ptom] 26 mcg VAG .TWICE A WEEK 03/09/17 [History] ondansetron HCL [Zofran] 4 mg PO Q6HR PRN 03/09/17 [History] Meclizine [Antivert] 25 mg PO Q8H PRN #10 tablet 03/11/17 [Rx] Metoprolol Tartrate 50 mg PO BID 03/14/18 [History] Past Medical History HEENT History: Reports: Macular Degeneration Cardiovascular History: Reports: CAD, High Cholesterol, Hypertension, SOB on Exertion, Stents Respiratory History: Reports: SOB, Other (See Below) Other Respiratory History: had influenza B in past Gastrointestinal History: Reports: Diverticulosis, GERD Other Gastrointestinal History: HX ulcer Genitourinary History: Reports: Chronic Renal Insuffiency, UTI, Recurrent Other Genitourinary History: freguent UTI PLASTICS REPAIRER History: Reports: Other PLASTICS REPAIRER History: one miscarriage Musculoskeletal History: Reports: Arthritis, Osteoarthritis, Osteoporosis, Other (See Below) Other Musculoskeletal History: spinal stenosis, DJD, knee brace to left for arthritis Neurological History: Reports: Vertigo Psychiatric History: Reports: None Endocrine/Metabolic History: Reports: Obesity/BMI 30+, Osteopenia, Osteoporosis Hematologic History: Reports: Anemia, Iron Deficiency, Other (See Below) Other Hematologic History: neutropenia, microalbuminuria Immunologic History: Reports: None Oncologic (Cancer) History: Reports: None Dermatologic History: Reports: Benign Melanoma, Cellulitis, Other (See Below) Other Dermatologic History: rosacea - Infectious Disease History Infectious Disease History: Reports: Chicken Pox, Influenza, Measles, Mumps, Shingles - Past Surgical History Head Surgeries/Procedures: Reports: None HEENT Surgical History: Reports: Adenoidectomy, Naso-Sinus Surgery, Tonsillectomy Cardiovascular Surgical History: Reports: Coronary Artery Stent, Other (See Below) Other Cardiovascular Surgeries/Procedures: stent to LAD, Varicose vein surgery Respiratory Surgical History: Reports: None GI Surgical History: Reports: Cholecystectomy, Colonoscopy, EGD Female Surgical History: Reports: Breast Biopsy, Hysterectomy Other Female Surgeries/Procedures: 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 Endocrine Surgical History: Reports: None Neurological Surgical History: Reports: None Musculoskeletal Surgical History: Reports: None Oncologic Surgical History: Reports: None Dermatological Surgical History: Reports: Other (See Below) Social & Family History - Family History Family Medical History: No Pertinent Family History HEENT: Reports: Cataract, Macular Degeneration Cardiac: Reports: Other (See Below) Other Cardiac Family History: leaky valve Respiratory: Reports: None GI: Reports: None : Reports: Other (See Below) Other Family History: mother had bladder infection OBGYN: Reports: Musculoskeletal: Reports: Arthritis, Osteoarthritis Neurological: Reports: Other (See Below) Other Neurological Family History: mother was anxious Psychiatric: Reports: None Endocrine/Metabolic: Reports: Osteoporosis Hematologic: Reports: Anemia Immunologic: Reports: None Dermatologic: Reports: None Oncologic: Reports: Colon, Prostate - Tobacco Use Tobacco Use Status *Q: Never Tobacco User Second Hand Smoke Exposure: No - Caffeine Use Caffeine Use: Reports: None - Recreational Drug Use Recreational Drug Use: No - Living Situation & Occupation Living situation: Reports: , Alone Occupation: Retired ED ROS GENERAL - Review of Systems Review Of Systems: Comprehensive ROS is negative, except as noted in HPI. ED EXAM, GENERAL - Physical Exam Exam: See Below Exam Limited By: Uncooperative General Appearance: Anxious Eye Exam: Bilateral Eye: EOMI, PERRL Ears: Normal External Exam, Hearing Loss (mild) Nose: Normal Inspection Throat/Mouth: Normal Inspection Head: Atraumatic, Normocephalic Neck: Normal Inspection Respiratory/Chest: No Respiratory Distress, Lungs Clear, Normal Breath Sounds Cardiovascular: Normal Peripheral Pulses, Regular Rate, Rhythm GI/Abdominal: Normal Bowel Sounds, Soft, Non-Tender Back Exam: Normal Inspection, Full Range of Motion Extremities: Normal Range of Motion Neurological: Alert, Oriented Psychiatric: Normal Affect, Normal Mood Skin Exam: Warm, Dry, Intact, Normal Color #1 Interpretation EKG Date: 01/12/21 Time: 04:36 Rhythm: NSR Rate (Beats/Min): 59 [place]: Normal P-Wave: Present QRS: Normal Comparison: NA - No Prior EKG EKG Interpretation Comments: Sinus old anterior infact rhythm, Course - Vital Signs Last Recorded V/S: Last Vital Signs Temp 97.6 F 01/12/21 04:23 Pulse 63 01/12/21 05:15 Resp 18 01/12/21 05:15 BP 143/59 H 01/12/21 05:15 Pulse Ox 99 01/12/21 05:15 - Orders/Labs/Meds Labs: Laboratory Tests 01/12/21 01/12/21 Range/Units 04:42 04:42 WBC 7.6 (5.0-10.0) 10^3/uL RBC 4.02 L (4.2-5.4) 10^6/uL Hgb 12.2 (12.0-16.0) g/dL Hct 36.5 L (37.0-47.0) % MCV 90.8 (80-100) fL MCH 30.3 (27.0-34.0) pg MCHC 33.4 (33.0-35.0) g/dL Plt Count 193 (150-450) 10^3/uL Neut % (Auto) 47.1 (42.2-75.2) % Lymph % (Auto) 44.8 (20.5-50.1) % [place] % (Auto) 6.6 (2-8) % Eos % (Auto) 1.2 (1.0-3.0) % Baso % (Auto) 0.3 (0.0-1.0) % Sodium 144 (136-145) mmol/L Potassium 4.1 (3.5-5.1) mmol/L Chloride 104 (98-107) mmol/L Carbon Dioxide 30 (21-32) mmol/L Anion Gap 14.1 H (7-13) mEq/L BUN 16 (7-18) mg/dL Creatinine 0.75 (0.55-1.02) mg/dL Est Cr Clr Drug Dosing 47.36 mL/min Estimated GFR (MDRD) > 60 BUN/Creatinine Ratio 21.3 (No establ ref range) Glucose 120 H (74-99) mg/dL Calcium 9.8 (8.5-10.1) mg/dL Total Bilirubin 0.6 (0.2-1.0) mg/dL AST 23 (15-37) U/L ALT 40 (14-59) U/L Alkaline Phosphatase 78 (46-116) U/L Troponin I < 0.017 (0.000-0.056) ng/mL B-Natriuretic Peptide 113 H (0-100) pg/ml Total Protein 7.5 (6.4-8.2) g/dL Albumin 4.0 (3.4-5.0) g/dL Globulin 3.5 Albumin/Globulin Ratio 1.1 Departure - Departure Time of Disposition: 06:07 Disposition: Home, Self-Care 01 Condition: Good Clinical Impression: Anxiety Hypertension Qualifiers: Hypertension type: unspecified Qualified Code(s): I10 - Essential (primary) hypertension Instructions: Hypertension, Adult, [id number] Forms: ED Department Discharge Additional Instructions: Take home medications as prescribed decrease salt/sodium intake in diet Clinic follow up later this week blood pressure check twice daily and bring to clinic appointment Sepsis Event Note (ED) - Evaluation Sepsis Screening Result: No Definite Risk - Focused Exam Vital Signs: Vital Signs Temp Pulse Resp BP Pulse Ox 01/12/21 05:15 63 18 143/59 H 99 01/12/21 04:23 97.6 F 61 18 162/73 H 100
== END 2021-01-12 06:36 | disposition home or self-care (01) ==
LOC: DL.ED 04:18
DX: I12.9 Hypertensive chronic kidney disease with stage 1 through stage 4 chronic kidney disease, or unspecified chronic kidney disease (principal); N18.9 Chronic kidney disease, unspecified; F41.9 Anxiety disorder, unspecified; I25.10 Atherosclerotic heart disease of native coronary artery without angina pectoris; E78.00 Pure hypercholesterolemia, unspecified; K21.9 Gastro-esophageal reflux disease without esophagitis; M19.90 Unspecified osteoarthritis, unspecified site; E66.9 Obesity, unspecified; Z68.33 Body mass index [BMI] 33.0-33.9, adult; Z88.8 Allergy status to other drugs, medicaments and biological substances; Z88.2 Allergy status to sulfonamides; Z88.1 Allergy status to other antibiotic agents; Z79.899 Other long term (current) drug therapy
CPT/HCPCS: 36415; 70450; 80053; 83880; 84484; 85025; 93005; 93010; 99284; 99284-25

== ENCOUNTER 2021-02-06 09:22 | Emergency (ER) | payer MEDICARE, OTHER ==
[2021-02-06] MEDS ORDERED: Tetracaine HCl/PF 0.5% 4 ML Bottle EYERT ONE (09:26)
[2021-02-06] MEDS ORDERED: Fluorescein 1 MG Ophth Strip EYERT ONE (09:28)
[2021-02-06] MEDS ORDERED: Gentamicin 0.3% Ophth Soln 5 ML Bottle EYERT ONE (09:30)
[2021-02-06 09:33] VITALS: BP 155/67; PULSE 80
--- NOTE | 2021-02-06 09:55 | EDM.PDOC ---
<Waldemar Gamboa Tobias - Last Filed: 02/06/21 09:55> ED HPI GENERAL MEDICAL PROBLEM - General Chief Complaint: Eye Problems Stated Complaint: SOMETHING IN EYE Time Seen by Provider: 02/06/21 09:50 Source of Information: Reports: Patient History Limitations: Reports: No Limitations - History of Present Illness INITIAL COMMENTS - FREE TEXT/NARRATIVE: 86 y/o F c/o FB in R eye. States yesterday the wind blew something into her eye. Pt states she thought she got it out yesterday but this morning the pt was washing around her eyes and she developed the sensation of something being stuck in her eye. Denies visual changes, fever, cough, chills, drugs, etoh. Onset: Sudden Duration: Day(s): Location: Reports: Other (R eye) Quality: Reports: Sharp Severity: Mild Improves with: Reports: None Worsens with: Reports: Movement - Related Data Allergies Allergy/AdvReac Type Severity Reaction Status Date / Time atorvastatin [From Lipitor] Allergy Mild Muscle Verified 02/06/21 09:34 Aches aspirin Allergy tongue Verified 02/06/21 09:34 swelling guaifenesin [From Robitussin] Allergy Cannot Verified 02/06/21 09:34 Remember metronidazole Allergy Cannot Verified 02/06/21 09:34 Remember pravastatin Allergy Muscle Verified 02/06/21 09:34 Aches rosuvastatin Allergy Muscle Verified 02/06/21 09:34 Aches paroxetine HCl [From Paxil] AdvReac Unknown Nausea. Verified 02/06/21 09:34 Jittery. sulfamethoxazole AdvReac Unknown Bone pain Verified 02/06/21 09:34 [From Bactrim] trimethoprim [From Bactrim] AdvReac Unknown Bone pain Verified 02/06/21 09:34 propoxyphene napsylate AdvReac Nausea and Verified 02/06/21 09:34 [From Darvocet-N] Vomiting Home Meds: Home Meds Calcium Carb, Citrate/Vit D3 [Calcium + D3 ER Tablet] 1 tab PO DAILY 10/04/14 [History] Cranberry 1,000 mg PO DAILY 10/04/14 [History] Fish Oil/[place]-3 Fatty Acids [Fish Oil] 1,000 mg PO BID 10/04/14 [History] Glucosam/Chond-MSM 2/C/D3/Ranjan [Ooasychusc-Eisstmoucvd-MAH] 1,500 mg PO TID 10/04/14 [History] Pantoprazole Sodium [Protonix] 40 mg PO DAILY 10/04/14 [History] Simvastatin [Zocor] 40 mg PO DAILY 10/04/14 [History] amLODIPine [Norvasc] 2.5 mg PO DAILY 10/04/14 [History] Cholecalciferol (Vitamin D3) [Vitamin D3] 1,000 unit PO DAILY 12/25/14 [History] Clotrimazole/Betamethasone Dip [Lotrisone Cream] 1 gm TOP BID PRN 12/25/14 [History] Fluticasone Propionate [Flonase] 2 spray NASBOTH DAILY PRN 12/25/14 [History] Ubidecarenone [Coenzyme Q10] 100 mg PO DAILY 12/25/14 [History] oxyCODONE HCl/Acetaminophen [Endocet 5-325 Tablet] 1 tab PO DAILY PRN 12/25/14 [History] Acetaminophen [Tylenol Extra Strength] 2 tab PO BID 12/26/14 [History] Sucralfate 1 gm PO QID 09/20/16 [History] Codeine/Promethazine [Phenergan with Codeine] 5 ml PO DAILY PRN 03/09/17 [History] Furosemide 20 mg PO DAILY PRN 03/09/17 [History] Lisinopril 5 mg PO DAILY 03/09/17 [History] Multivitamin [Multiple Vitamins] 1 each PO DAILY 03/09/17 [History] Nitroglycerin [Nitrostat] 0.4 mg SL Q5M PRN 03/09/17 [History] Patient's Own Medication [Ptom] 26 mcg VAG .TWICE A WEEK 03/09/17 [History] ondansetron HCL [Zofran] 4 mg PO Q6HR PRN 03/09/17 [History] Meclizine [Antivert] 25 mg PO Q8H PRN #10 tablet 03/11/17 [Rx] Metoprolol Tartrate 50 mg PO BID 03/14/18 [History] Past Medical History HEENT History: Reports: Macular Degeneration Cardiovascular History: Reports: CAD, High Cholesterol, Hypertension, SOB on Exertion, Stents Respiratory History: Reports: SOB, Other (See Below) Other Respiratory History: had influenza B in past Gastrointestinal History: Reports: Diverticulosis, GERD Other Gastrointestinal History: HX ulcer Genitourinary History: Reports: Chronic Renal Insuffiency, UTI, Recurrent Other Genitourinary History: freguent UTI PRINT LINE 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 History: Reports: Other PRINT LINE FEEDER History: one miscarriage Musculoskeletal History: Reports: Arthritis, Osteoarthritis, Osteoporosis, Other (See Below) Other Musculoskeletal History: spinal stenosis, DJD, knee brace to left for arthritis Neurological History: Reports: Vertigo Psychiatric History: Reports: None Endocrine/Metabolic History: Reports: Obesity/BMI 30+, Osteopenia, Osteoporosis Hematologic History: Reports: Anemia, Iron Deficiency, Other (See Below) Other Hematologic History: neutropenia, microalbuminuria Immunologic History: Reports: None Oncologic (Cancer) History: Reports: None Dermatologic History: Reports: Benign Melanoma, Cellulitis, Other (See Below) Other Dermatologic History: rosacea - Infectious Disease History Infectious Disease History: Reports: Chicken Pox, Influenza, Measles, Mumps, Shingles - Past Surgical History Head Surgeries/Procedures: Reports: None HEENT Surgical History: Reports: Adenoidectomy, Naso-Sinus Surgery, Tonsillectomy Cardiovascular Surgical History: Reports: Coronary Artery Stent, Other (See Below) Other Cardiovascular Surgeries/Procedures: stent to LAD, Varicose vein surgery Respiratory Surgical History: Reports: None GI Surgical History: Reports: Cholecystectomy, Colonoscopy, EGD Female Surgical History: Reports: Breast Biopsy, Hysterectomy Other Female Surgeries/Procedures: 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 Endocrine Surgical History: Reports: None Neurological Surgical History: Reports: None Musculoskeletal Surgical History: Reports: None Oncologic Surgical History: Reports: None Dermatological Surgical History: Reports: Other (See Below) Social & Family History - Family History Family Medical History: No Pertinent Family History HEENT: Reports: Cataract, Macular Degeneration Cardiac: Reports: Other (See Below) Other Cardiac Family History: leaky valve Respiratory: Reports: None GI: Reports: None : Reports: Other (See Below) Other Family History: mother had bladder infection OBGYN: Reports: Musculoskeletal: Reports: Arthritis, Osteoarthritis Neurological: Reports: Other (See Below) Other Neurological Family History: mother was anxious Psychiatric: Reports: None Endocrine/Metabolic: Reports: Osteoporosis Hematologic: Reports: Anemia Immunologic: Reports: None Dermatologic: Reports: None Oncologic: Reports: Colon, Prostate - Tobacco Use Tobacco Use Status *Q: Never Tobacco User - Caffeine Use Caffeine Use: Reports: None - Recreational Drug Use Recreational Drug Use: No - Living Situation & Occupation Living situation: Reports: , Alone Occupation: Retired ED ROS GENERAL - Review of Systems Review Of Systems: Comprehensive ROS is negative, except as noted in HPI. ED EXAM GENERAL W FULL EYE - Physical Exam Exam: See Below Exam Limited By: No Limitations General Appearance: Alert, WD/WN, No Apparent Distress Eye Exam: Right Eye: Corneal Abrasion (corneal abrasion at the 9 o'clock postion), Bilateral Eye: PERRL Cornea Exam: Right: Corneal Abrasion Extraocular Movements: Bilateral: Intact Pupillary Size: Bilateral: 4 mm Pupillary Reaction: Bilateral: Brisk Anterior Chamber: Bilateral: Normal Appearance Respiratory/Chest: No Respiratory Distress, Lungs Clear, Normal Breath Sounds, No Accessory Muscle Use, Chest Non-Tender Cardiovascular: Normal Peripheral Pulses, Regular Rate, Rhythm, No Edema, No Gallop, No JVD, No Murmur, No Rub ED EYE w/ Add Procedure - Eye Procedure Alcaine Drops Administered: Yes Eye FB Removal: Other (No FB present) - Additional/Other Procedure(s) Other (Free Text) Procedure(s) [Text1]: Corneal abrasion present at the 9 o'clock position. Departure - Departure Time of Disposition: 09:52 Disposition: Home, Self-Care 01 Condition: Good Clinical Impression: Corneal abrasion Qualifiers: Encounter type: initial encounter Laterality: right Qualified Code(s): S05.01XA - Injury of conjunctiva and corneal abrasion without foreign body, right eye, initial encounter - Discharge Information *PRESCRIPTION DRUG MONITORING PROGRAM REVIEWED*: Not Applicable *COPY OF PRESCRIPTION DRUG MONITORING REPORT IN PATIENT JOSE ANGEL: Not Applicable Instructions: Corneal Abrasion, [id number] Forms: ED Department Discharge Additional Instructions: Follow up with your eye doctor next week. Use the Gentamicin eye drops one drop in the R eye 4 times a day for five days. If any new symptoms or concerns develop contact your eye doctor or return to the ER. Sepsis Event Note (ED) - Evaluation Sepsis Screening Result: No Definite Risk <Jeovanny Solomon - Last Filed: 02/06/21 10:09> Course - Vital Signs Last Recorded V/S: Last Vital Signs Temp 97.9 F 02/06/21 09:31 Pulse 80 02/06/21 09:31 Resp 18 02/06/21 09:31 BP 155/67 H 02/06/21 09:31 Pulse Ox 98 02/06/21 09:31 - Orders/Labs/Meds Meds: Medications Discontinued Medications Generic Name Dose Route Start Last Admin Trade Name Ezequiel PRN Reason Stop Dose Admin Fluorescein Sodium 1 mg 02/06/21 09:28 02/06/21 09:35 Fluorescein 1 Mg Ophth Strip EYERT 02/06/21 09:29 1 mg ONETIME ONE Administration Gentamicin Sulfate 1 ml 02/06/21 09:30 02/06/21 09:36 Gentamicin 0.3% Ophth Soln 5 Ml Bottle EYERT 02/06/21 09:31 2 drop ONETIME ONE Administration Tetracaine HCl 1 ml 02/06/21 09:26 02/06/21 09:35 Tetracaine Hcl/Pf 0.5% 4 Ml Bottle EYERT 02/06/21 09:27 2 drop ASDIRECTED ONE Administration - Re-Assessments/Exams Free Text/Narrative Re-Assessment/Exam: 02/06/21 10:08 I personally performed or re-performed the physical examination and medical decision making. I have verified all student documentation or findings, including history, physical exam and/or medical decision making. Sepsis Event Note (ED) - Focused Exam Vital Signs: Vital Signs Temp Pulse Resp BP Pulse Ox 02/06/21 09:31 97.9 F 80 18 155/67 H 98
== END 2021-02-06 10:00 | disposition home or self-care (01) ==
LOC: DL.ED 09:22
DX: S05.01XA Injury of conjunctiva and corneal abrasion without foreign body, right eye, initial encounter (principal); I25.10 Atherosclerotic heart disease of native coronary artery without angina pectoris; E78.00 Pure hypercholesterolemia, unspecified; E66.9 Obesity, unspecified; M19.90 Unspecified osteoarthritis, unspecified site; I12.9 Hypertensive chronic kidney disease with stage 1 through stage 4 chronic kidney disease, or unspecified chronic kidney disease; N18.9 Chronic kidney disease, unspecified; K21.9 Gastro-esophageal reflux disease without esophagitis; Z68.30 Body mass index [BMI] 30.0-30.9, adult; Z88.8 Allergy status to other drugs, medicaments and biological substances; Z88.6 Allergy status to analgesic agent; Z88.1 Allergy status to other antibiotic agents; Z88.2 Allergy status to sulfonamides; Z79.899 Other long term (current) drug therapy; X58.XXXA Exposure to other specified factors, initial encounter
CPT/HCPCS: 99283; A9270

== ENCOUNTER 2021-03-11 06:58 | Day surgery (SDC) | payer MEDICARE, OTHER ==
[~2021-03-11 06:58] MED LIST: Midazolam 1 MG/ML 2 ML SDV ONE; fentaNYL 100 MCG/2 ML SDV ONE
[2021-03-11] MEDS ORDERED: fentaNYL 100 MCG/2 ML SDV IV ONE ×2 (06:59→08:00)
[2021-03-11] MEDS ORDERED: Midazolam 1 MG/ML 2 ML SDV IV ONE ×2 (06:59→08:01)
[2021-03-11] MEDS ORDERED: Dextrose 5%-0.45% NaCl 1,000 ML IV SCH (07:00)
[2021-03-11 11:04] VITALS: BP 111/48; PULSE 54
--- NOTE | 2021-03-11 13:33 | OR ---
DATE: 03/11/2021 PROCEDURES: Esophagogastroduodenoscopy and multiple pinch biopsies. INSTRUMENT USED: [id number] Olympus video panendoscope. PREMEDICATIONS: No oral or topical anesthesia used. Fentanyl 50 mcg intravenous, Versed 1 mg intravenous, nasal O2 cannula. The procedure was done under pulse oximetry, BP recording, and monitor worker. INDICATION: The patient with solid dysphagia, unexplained and not responsive to medical measures. Has had esophageal dilatations before. She is on PPI. Esophagogastroduodenoscopy is performed for detection of any active erosive lesions, Phelps esophagus and/or malignancy also under consideration, H pylori status to be determined, esophageal dilatations if indicated, endoscopic hemostasis therapy if needed. PROCEDURE IN DETAIL: The scope was passed with ease. Adequate visualization of the esophagus was made from proximal to distal areas. No upper esophageal lesions identified. No distal esophageal stricture. No uphill or downhill esophageal varices. No Ashley-Burgess tear. No evidence of erosive esophagitis by [place] criteria. No esophageal polyp or tumor mass identified. Non constricting Schatzki's ring was noted. Sliding hiatal hernia was present. No proximal gastric varices noted. Gastric fundus examination by retroflexion showed no polypoid lesions. No gastric ulcer, malignant mass, or vascular ectasia identified. Duodenal bulb showed no ulcer. Visualized second part of the duodenum was unremarkable. Multiple pinch biopsies were taken from the gastric antrum and proximal body and sent for PyloriTek test for H pylori, and if negative in an hour, tissue is to be sent for histopathology. No bleeding was noted from any of the visualized areas at the completion of examination. Photographs were taken of the duodenal bulb, gastric antrum, fundus, and distal esophagus. IMPRESSION: 1. Non constricting Schatzki's ring. 2. Sliding hiatal hernia. The patient tolerated the procedure well. [facility] /[id number]
--- NOTE | 2021-03-11 13:33 | OR ---
DATE: 03/11/2021 PROCEDURE: Esophageal dilatation. INDICATIONS: The patient with dysphagia and Schatzki's ring. PREMEDICATIONS: Done after esophagogastroduodenoscopy. PROCEDURE IN DETAIL: Esophageal dilatation was done with ease using a Perdomo bougie dilator, [place] size 48. No blood noted at dilated tip after completion. INSTRUMENT USED: Perdomo dilator, [place] size 48. IMPRESSION: Schatzki's ring. The patient tolerated the procedure well. [facility] /[id number]
== END 2021-03-11 10:15 | disposition home or self-care (01) ==
LOC: DL.ENDO 06:58
PROVIDERS: ATTEND Internal Medicine Gastroenterology
DX: K31.89 Other diseases of stomach and duodenum (principal); K22.2 Esophageal obstruction; K44.9 Diaphragmatic hernia without obstruction or gangrene; I78.1 Nevus, non-neoplastic; E66.09 Other obesity due to excess calories; I25.10 Atherosclerotic heart disease of native coronary artery without angina pectoris; K21.9 Gastro-esophageal reflux disease without esophagitis; K57.30 Diverticulosis of large intestine without perforation or abscess without bleeding; I12.9 Hypertensive chronic kidney disease with stage 1 through stage 4 chronic kidney disease, or unspecified chronic kidney disease; N18.9 Chronic kidney disease, unspecified; E78.5 Hyperlipidemia, unspecified; Z95.5 Presence of coronary angioplasty implant and graft; Z90.49 Acquired absence of other specified parts of digestive tract; Z98.890 Other specified postprocedural states
CPT/HCPCS: 87077; 88305; J2250; J3010; J7042

== ENCOUNTER 2021-12-01 07:28 | Day surgery (SDC) | payer MEDICARE, OTHER ==
[2021-12-01] MEDS ORDERED: Sodium Chloride 0.9% 10 ML Syringe IV ONE (07:29)
[2021-12-01] MEDS ORDERED: Dexamethasone 4 MG/ML SDV IV ONE (07:29)
[2021-12-01] MEDS ORDERED: Midazolam 1 MG/ML 2 ML SDV IV ONE (07:29)
[2021-12-01] MEDS ORDERED: Povidone-Iodine 5% Sterile Ophth Soln 30 ML Bottle EYELF ONE ×2 (07:30→08:52)
[2021-12-01] MEDS ORDERED: Timolol Maleate 0.5% Ophth Soln 5 ML Bottle EYELF ONE (07:30)
[2021-12-01] MEDS ORDERED: Cataract Ophth Solution EYELF ONE (07:30)
[2021-12-01] MEDS ORDERED: Moxifloxacin 0.5% Ophth Soln 3 ML Bottle EYELF ONE (07:30)
[2021-12-01] MEDS ORDERED: Acetaminophen 325 MG Tab PO PRN (07:30)
[2021-12-01] MEDS ORDERED: Tropicamide 1% Ophth Soln 15 ML Bottle EYELF ONE (07:30)
[2021-12-01] MEDS ORDERED: Phenylephrine 10% Ophth Soln 5 ML Bot EYELF ONE (07:30)
[2021-12-01] MEDS ORDERED: Acetaminophen/Codeine 300-30 MG Tab PO PRN (07:30)
[2021-12-01] MEDS ORDERED: Ondansetron 4 MG/2 ML SDV IVPUSH PRN (07:30)
[2021-12-01] MEDS ORDERED: Proparacaine 0.5% Ophth Soln 15 ML Bottle EYELF ONE (07:30)
[2021-12-01] MEDS ORDERED: Tetracaine HCl/PF 0.5% 4 ML Bottle EYELF ONE (08:52)
[2021-12-01] MEDS ORDERED: Lidocaine 1% 30 ML SDV ONE (08:52)
[2021-12-01] MEDS ORDERED: Diclofenac Sodium 0.1% Ophth Soln 5 ML Bottle EYELF ONE (08:52)
[2021-12-01] MEDS ORDERED: Apraclonidine 0.5% Ophth Soln 5 ML Bot EYELF ONE (08:52)
[2021-12-01] MEDS ORDERED: Dexamethasone/Tobramycin 0.1-0.3% Ophth Oint 3.5 GM Tube EYELF ONE (08:52)
[2021-12-01] MEDS ORDERED: Vancomycin 500 MG SDV EYELF ONE (08:53)
[2021-12-01] MEDS ORDERED: Chondroitin Sulfate/Hyaluronate Sodium Ophth Inj 0.75 ML Syringe EYELF ONE (08:53)
[2021-12-01] MEDS ORDERED: Balanced Salt Solution Ophth Irrig 500 ML Bottle IOCULAR ONE (08:53)
[2021-12-01 11:18] VITALS: BP 136/52; PULSE 60
== END 2021-12-01 10:58 | disposition home or self-care (01) ==
LOC: DL.SDS 07:28
PROVIDERS: ATTEND Ophthalmology
DX: H25.812 Combined forms of age-related cataract, left eye (principal); I25.10 Atherosclerotic heart disease of native coronary artery without angina pectoris; N18.30 Chronic kidney disease, stage 3 unspecified; I12.9 Hypertensive chronic kidney disease with stage 1 through stage 4 chronic kidney disease, or unspecified chronic kidney disease; E66.9 Obesity, unspecified; E78.00 Pure hypercholesterolemia, unspecified; K21.9 Gastro-esophageal reflux disease without esophagitis; Z79.899 Other long term (current) drug therapy; Z88.8 Allergy status to other drugs, medicaments and biological substances; Z88.1 Allergy status to other antibiotic agents
CPT/HCPCS: 00142; 66984; A9270; J1100; J2250; J3370; V2787

== ENCOUNTER 2021-12-15 07:52 | Day surgery (SDC) | payer MEDICARE, OTHER ==
[2021-12-15] MEDS ORDERED: Midazolam 1 MG/ML 2 ML SDV IV ONE (07:53)
[2021-12-15] MEDS ORDERED: Sodium Chloride 0.9% 10 ML Syringe IV ONE (07:53)
[2021-12-15] MEDS ORDERED: Dexamethasone 4 MG/ML SDV IV ONE (07:53)
[2021-12-15] MEDS ORDERED: Acetaminophen/Codeine 300-30 MG Tab PO PRN (08:00)
[2021-12-15] MEDS ORDERED: Sodium Chloride 0.9% 10 ML Syringe FLUSH PRN (08:00)
[2021-12-15] MEDS ORDERED: Ondansetron 4 MG/2 ML SDV IVPUSH PRN (08:00)
[2021-12-15] MEDS ORDERED: Phenylephrine 10% Ophth Soln 5 ML Bot EYERT ONE (08:00)
[2021-12-15] MEDS ORDERED: Cataract Ophth Solution EYERT ONE (08:00)
[2021-12-15] MEDS ORDERED: Acetaminophen 325 MG Tab PO PRN (08:00)
[2021-12-15] MEDS ORDERED: Tropicamide 1% Ophth Soln 15 ML Bottle EYERT ONE (08:00)
[2021-12-15] MEDS ORDERED: Moxifloxacin 0.5% Ophth Soln 3 ML Bottle EYERT ONE (08:00)
[2021-12-15] MEDS ORDERED: Proparacaine 0.5% Ophth Soln 15 ML Bottle EYERT ONE (08:00)
[2021-12-15] MEDS ORDERED: Timolol Maleate 0.5% Ophth Soln 5 ML Bottle EYERT ONE (08:00)
[2021-12-15] MEDS ORDERED: Povidone-Iodine 5% Sterile Ophth Soln 30 ML Bottle EYERT ONE ×2 (08:00→09:19)
[2021-12-15] MEDS ORDERED: Lidocaine 1% 30 ML SDV ONE (09:19)
[2021-12-15] MEDS ORDERED: Apraclonidine 0.5% Ophth Soln 5 ML Bot EYERT ONE (09:19)
[2021-12-15] MEDS ORDERED: Tetracaine HCl/PF 0.5% 4 ML Bottle EYERT ONE (09:19)
[2021-12-15] MEDS ORDERED: Vancomycin 500 MG SDV EYERT ONE (09:20)
[2021-12-15] MEDS ORDERED: Chondroitin Sulfate/Hyaluronate Sodium Ophth Inj 0.75 ML Syringe EYERT ONE (09:20)
[2021-12-15] MEDS ORDERED: Balanced Salt Solution Ophth Irrig 500 ML Bottle IOCULAR ONE (09:20)
[2021-12-15] MEDS ORDERED: Diclofenac Sodium 0.1% Ophth Soln 5 ML Bottle EYERT ONE (09:20)
[2021-12-15] MEDS ORDERED: Dexamethasone/Tobramycin 0.1-0.3% Ophth Oint 3.5 GM Tube EYERT ONE (09:20)
[2021-12-15] MEDS ORDERED: Balanced Salt Solution Ophth Irrig 15 ML Bottle EYERT ONE (09:23)
[2021-12-15] MEDS ORDERED: Carbachol 0.01% Intraocular 1.5 ML Vial EYERT ONE (09:28)
[2021-12-15 13:03] VITALS: BP 144/53; PULSE 57
== END 2021-12-15 10:30 | disposition home or self-care (01) ==
LOC: DL.SDS 07:52
PROVIDERS: ATTEND Ophthalmology
DX: H25.811 Combined forms of age-related cataract, right eye (principal); K21.9 Gastro-esophageal reflux disease without esophagitis; E66.09 Other obesity due to excess calories; F41.1 Generalized anxiety disorder; E78.00 Pure hypercholesterolemia, unspecified; R73.9 Hyperglycemia, unspecified; I10 Essential (primary) hypertension; E78.5 Hyperlipidemia, unspecified; Z68.30 Body mass index [BMI] 30.0-30.9, adult
CPT/HCPCS: 00142; A9270-GY; J1100; J2250; J3370; V2787-GY

== ENCOUNTER 2023-12-05 17:20 | Emergency (ER) | payer MEDICARE, OTHER ==
[2023-12-05 18:05] LABS: BASOPHILS PERCENT AUTO 0.2 % (0.0-1.0); EOSINOPHILS PERCENT AUTO 1.4 % (1.0-3.0); HEMOGLOBIN 11.3 g/dL (12.0-16.0); LYMPHOCYTES PERCENT AUTO 60.7 % (20.5-50.1); MEAN CORPUSCULAR HEMOGLOBIN 29.2 pg (27.0-34.0); MEAN CORPUSCULAR HGB CONC 32.3 g/dL (33.0-35.0); MEAN CORPUSCULAR VOLUME 90.4 fL (80-100); MONOCYTES PERCENT AUTO 7.9 % (2-8); NEUTROPHILS PERCENT AUTO 29.8 % (42.2-75.2); PLATELET COUNT,PLT 266 10^3/uL (150-450); RED BLOOD CELL COUNT 3.87 10^6/uL (4.2-5.4); WHITE BLOOD CELL COUNT,WBC 8.9 10^3/uL (5.0-10.0)
[2023-12-05 18:14] LABS: PROTHROMBIN TIME 9.9 SEC (9.0-12.0); PTT,PARTIAL THROMBOPLSTIN TIME 23.6 SEC (22.0-34.0)
[2023-12-05 18:18] LABS: ALANINE AMINOTRANSFERASE,ALT 27 U/L (14-59); ALBUMIN 3.6 g/dL (3.4-5.0); ALKALINE PHOSPHATASE 96 U/L (46-116); ANION GAP 10.8 mEq/L (7-13); ASPARTATE AMNIOTRANSFERASE,AST 16 U/L (15-37); BILIRUBIN TOTAL 0.4 mg/dL (0.2-1.0); BLOOD UREA NITROGEN,BUN 20 mg/dL (7-18); CALCIUM 9.2 mg/dL (8.5-10.1); CARBON DIOXIDE,CO2 31 mmol/L (21-32); CHLORIDE,CL 102 mmol/L (98-107); CREATININE 0.87 mg/dL (0.55-1.02); GLUCOSE RANDOM 133 mg/dL (70-99); POTASSIUM,K 3.8 mmol/L (3.5-5.1); PROTEIN TOTAL,TP 7.3 g/dL (6.4-8.2); SODIUM,NA 140 mmol/L (136-145)
[2023-12-05] MEDS: Iopamidol 612 MG/ML 100 ML Bottle IVPUSH ONE (18:18)
[2023-12-05 18:24] LABS: ESTIMATED GFR 64 mL/min (>=60)
[2023-12-05] MEDS: Sodium Chloride 0.9% 1,000 ML IV ONE (18:48)
[2023-12-05] MEDS: Cyclobenzaprine 10 MG Tab PO ONE (18:48)
[2023-12-05] MEDS: Acetaminophen 500 MG Tab PO ONE (18:48)
[2023-12-05 18:52] VITALS: BP 185/77; PULSE 72
[2023-12-05] MEDS: Sodium Chloride 0.9% 10 ML Syringe FLUSH PRN (18:54)
[2023-12-05] MEDS: Take Home: Cyclobenzaprine 10 MG Tab, 4 Tab Pack PO ONE (19:49)
== END 2023-12-05 19:55 | disposition home or self-care (01) ==
LOC: DL.ED 17:20
DX: S16.1XXA Strain of muscle, fascia and tendon at neck level, initial encounter (principal); S20.212A Contusion of left front wall of thorax, initial encounter; I12.9 Hypertensive chronic kidney disease with stage 1 through stage 4 chronic kidney disease, or unspecified chronic kidney disease; N18.9 Chronic kidney disease, unspecified; E78.00 Pure hypercholesterolemia, unspecified; I25.10 Atherosclerotic heart disease of native coronary artery without angina pectoris; K21.9 Gastro-esophageal reflux disease without esophagitis; Z95.5 Presence of coronary angioplasty implant and graft; Z90.49 Acquired absence of other specified parts of digestive tract; Z79.899 Other long term (current) drug therapy; Z88.8 Allergy status to other drugs, medicaments and biological substances; Z88.2 Allergy status to sulfonamides; Z88.6 Allergy status to analgesic agent; Z88.1 Allergy status to other antibiotic agents; Z88.5 Allergy status to narcotic agent; V49.49XA Driver injured in collision with other motor vehicles in traffic accident, initial encounter; Y92.410 Unspecified street and highway as the place of occurrence of the external cause
CPT/HCPCS: 36415; 71260; 72125; 74177; 80053; 84484; 85025; 85610; 85730; 93005; 99284; A9270; J7030; Q9967; 93010; J3490